=== PATIENT | male | born 1950 | race Caucasian/White ===

== ENCOUNTER 2022-05-16 10:42 | Inpatient (IN) | payer MEDICARE, SELFPAY ==
[2022-05-16] VITALS (11 sets, daily range): BP systolic 113–144; BP diastolic 65–97; PULSE 49–175; RESP 12–23; TEMP 36.4–36.8; O2SAT 94–98; BMI 25.1; BMI 25.2
--- NOTE | 2022-05-16 10:44 | NURSING ---
NO OLD EKGS
--- NOTE | 2022-05-16 10:54 | RAD_ITS ---
STUDY: X-RAY CHEST REASON FOR EXAM: Male, 71 years old. Palpitations TECHNIQUE: Single AP portable view of the chest. COMPARISON: None. FINDINGS: EKG electrodes are seen. Patchy infiltrates are seen in the left lower lobe as well as in the right lower lobe and peripheral aspects of the right upper and right lower lobe. These most likely present possible patchy pneumonia superimposed on chronic scarring. There is blunting of the left cosmetic angle. Normal size heart. Normal mediastinum and alicia. Normal visualized pulmonary arteries. Normal visualized aortic arch and descending thoracic aorta. Normal visualized thoracic spine. Normal visualized ribs, clavicles, and shoulders. There is no demonstrated abnormality of the visualized soft tissue structures of the upper abdomen. RAD/Chest 1 View (Portable) IMPRESSION: Patchy infiltrates in both lungs as described suggestive of a patchy pneumonia superimposed on scarring. Blunting of the left costophrenic angle. Electronically Signed: Nam Christopher MD at 11:30 EDT ,
--- NOTE | 2022-05-16 10:55 | EKG12_ITS ---
Test Reason : RHYTHM CHANGE Blood Pressure : / mmHG Vent. Rate : 099 BPM Atrial Rate : 000 BPM P-R Int : 000 ms QRS Dur : 082 ms QT Int : 336 ms P-R-T Axes : 000 024 009 degrees QTc Int : 431 ms Atrial fibrillation Low voltage QRS (Limb Leads) Poor R wave progression Abnormal ECG Confirmed by АНДРЕЙ ALDRIDGE, MARCY ([id number]), editorial clerk [facility] ([id number]) on 05/18/2022 12:31:19 PM Referred By: Confirmed By:MARCY CHIANG MD
--- NOTE | 2022-05-16 11:00 | EX.ED.DYSGE1 ---
HPI History of Present Illness Chief Complaint: Palpitations Informant: patient Onset/Context/Timing Onset: Month(s) Timing: Intermittent Current Severity: Mild Maximum Severity: Moderate Narrative Narrative: Patient presents secondary to intermittent palpitations for the past 2 to 3 months. He states he will feel his heart starts racing. He has had lightheadedness but never passed out. He went to have pulmonary function testing done today and they noted his rapid heart rate and sent him to the emergency room. While taking the patient's history we watched on the monitor as the patient's heart rate deana into the 170s with a narrow complex. I asked the patient to take a deep breath and bear down. He broke into a sinus rhythm with heart rate in the 60s. Shortly thereafter heart rate increased again. Again while bearing down ventricular response slowed but there did appear to be flutter waves noted. [facility] Medical History (Updated 05/16/22 @ 12:[address] Yovana Alva MD) Palpitation Home Medications NK 05/16/22 [History Last Taken Unknown] Allergy/AdvReac Type Severity Reaction Status Date / Time Opioids - Morphine Analogues AdvReac Nausea Verified 05/16/22 10:44 [narcotics] Social History Smoking Status: Current every day smoker tobacco type: cigarettes ROS ROS ED Constitutional Constitutional ED: Denies chills or fever(s) Eyes Eyes: Denies change in vision or discharge from eye(s) ENT ENT ED: Denies discharge from eye(s), rhinorrhea or sore throat Cardiovascular Cardiovascular: Reports palpitations and racing heartbeat Respiratory/Chest Respiratory/Chest: Denies cough or dyspnea Gastrointestinal Gastrointestinal: Denies abdominal pain, diarrhea, nausea or vomiting Genitourinary Genitourinary ED: Denies dysuria Musculoskeletal Musculoskeletal: Denies back pain or extremity pain Integumentary Denies Abrasions or rash Neurologic Neurologic: Denies headache(s) or weakness Psychiatric Psychiatric: Denies anxiety or depression Allergic/Immunologic Allergic/Immunologic ED: Denies lip swelling or urticaria EXAM Physical Exam Const Vital Signs: 05/16/22 10:44 05/16/22 11:00 05/16/22 11:03 Temperature 98.2 F Temperature Source Temporal Pulse Rate 49 L 175 H 160 H Respiratory Rate 12 15 18 Respiratory Effort Respiratory Pattern Blood Pressure 137/65 H 118/79 118/97 H Blood Pressure Mean 89 92 104 Pulse Ox 94 97 98 Oxygen Delivery Method Room Air Room Air Room Air 05/16/22 11:06 05/16/22 11:07 Temperature Temperature Source Pulse Rate 82 Respiratory Rate 20 H Respiratory Effort Normal Non-Labored Respiratory Pattern Normal Blood Pressure 136/73 H Blood Pressure Mean 94 Pulse Ox 97 Oxygen Delivery Method Room Air Positive well nourished and well developed General Appearance ED: well developed HEENT Reports normocephalic and head/scalp atraumatic Eyes PERRL and EOMs intact bilaterally Neck supple Chest Wall inspection of chest normal and palpation of chest normal Resp normal respiratory effort and clear to auscultation bilaterally Cardio regular rhythm Rate: tachycardic GI normal to inspection, nondistended, normoactive bowel sounds Palpation: soft Extremity normal to inspection Neuro oriented x3 and no sensory deficits noted Sensorium / Orientation: alert Motor Exam: strength 5/5 throughout Psych mental status grossly normal Skin no rashes or lesions noted MDM MDM MDM Narrative Medical decision making narrative: Patient was ordered 10 mg of IV Cardizem. Lab work obtained along with EKGs and chest x-ray. Lab Data Attestation: I reviewed the patient's lab results. Labs: Laboratory Results - last 24 hr 05/16/22 05/16/22 05/16/22 10:58 10:58 10:58 WBC 9.0 RBC 5.08 Hgb 15.6 Hct 46.9 MCV 92.3 MCH 30.7 MCHC 33.3 RDW Std Deviation 45.3 H RDW Coeff of Chiquis 13.2 Plt Count 269 MPV 8.5 Immature Gran % (Auto) 0.200 Neut % (Auto) 73.6 H Lymph % (Auto) 16.3 L Rains % (Auto) 7.4 Eos % (Auto) 2.1 Baso % (Auto) 0.4 Absolute Neuts (auto) 6.6 Absolute Lymphs (auto) 1.47 Nucleated RBC % 0 PT 13.9 INR 1.1 APTT 28.5 Sodium 139 Potassium 4.1 Chloride 105 Carbon Dioxide 28.0 Anion Gap 6 BUN 16 Creatinine 0.96 Estim Creat Clear Calc 72.62 Est GFR (MDRD) Af Amer 100 Est GFR (MDRD) Non-Af 82 BUN/Creatinine Ratio 16.6 Glucose 94 Calcium 9.8 Troponin I High Sens 12 TSH 1.30 Radiography Chest X-Ray - ED: 1 View, Read by ED Physician and Chronic Changes Diagnostic Testing: Clinical Impression(s) from Imaging Studies Chest X-Ray 05/16/22 10:54 IMPRESSION: Patchy infiltrates in both lungs as described suggestive of a patchy pneumonia superimposed on scarring. Blunting of the left costophrenic angle. Electronically Signed: Nam Christopher MD at 11:30 EDT , EKG Initial EKG: Attestation: I personally reviewed and interpreted this EKG as follows: Interpretation: Sinus Tachycardia (Narrow complex tachycardia at 170.) Follow-up EKG: Attestation: I personally reviewed and interpreted this EKG as follows: Interpretation: Sinus Rhythm (Sinus at 78 with no acute ischemia.) Treatment and Re-Evaluation Narrative: Patient was given IV Cardizem. Approximately 5 minutes later he converted to a sinus rhythm. Lab work and chest x-ray obtained. Labs are unremarkable with normal troponin and TSH. Chest x-ray is read by radiology as pneumonia. I believe this is more chronic scarring. Patient has no fever or white count. He was recently treated for pneumonia secondary to a similar x-ray finding and had no improvement with antibiotics. Patient has had a total of 3 EKGs performed. First EKG revealed narrow complex tachycardia at 170. Second EKG is sinus rhythm at 78 bpm. Third EKG reveals atrial fibrillation with a ventricular rate of 99 bpm. I spoke with Dr. Edwards. I am attempting to send the images to him. I also spoke with hospitalist regarding admission. Patient be given another dose of Cardizem for rate control as his A. fib rate was between 90 and 130 when I was in the room. Discharge Plan Triage Chief Complaint: Palpitations ED Provider: Yovana Alva Dx/Rx/DC Orders Clinical Impression: Atrial fibrillation with RVR Prescriptions: No Action NK Primary Care Provider: Tess Alberts Referrals: Tess Alberts MD [Primary Care Provider] - Disposition Disposition: [facility]
[2022-05-16] MEDS: 0.9% Normal Saline 1,000 ML 150 ML IV ×3 (11:01→22:46)
[2022-05-16] MEDS: dilTIAZem 25 MG/5 ML Vial 10 MG IV BOLUS ×2 (11:01→13:25)
[2022-05-16 11:06] LABS: Absolute Lymphocyte Count 1.47 X10^3/uL (0.83-4.51); Absolute Neutrophil Count 6.6 X10^3/uL (2.0-7.7); Basophil# 0.04 X10^3/uL; Basophil% 0.4 % (0-1); Eosinophil# 0.19 X10^3/uL; Eosinophils% 2.1 % (0-5); Hematocrit 46.9 % (40-54); Hemoglobin 15.6 g/dL (13.0-16.5); Lymphocyte # 1.47 X10^3/ul (0.83-4.51); Lymphocyte % 16.3 % (19-41); Mean Corp Hgb Conc 33.3 g/dL (32-36); Mean Corpuscular Hgb 30.7 pg (27.0-32.0); Mean Corpuscular Volume 92.3 fL (80-94); Mean Platelet Vol. 8.5 fl (6.2-12.0); Monocyte# 0.67 X10^3/uL; Monocyte% 7.4 % (0-10); NRBC Flagged by Analyzer 0 % (0-5); Neutrophil # 6.62 X10^3/uL (2.7-7.7); Neutrophil % 73.6 % (47-70); Platelet Count 269 K/mm3 (150-450); RBC Distribution Width CV 13.2 % (11.6-14.6); RBC Distribution Width SD 45.3 fl (35.1-43.9); Red Blood Count 5.08 M/mm3 (4.6-6.2)
--- NOTE | 2022-05-16 11:06 | EKG12_ITS ---
Test Reason : Blood Pressure : / mmHG Vent. Rate : 078 BPM Atrial Rate : 078 BPM P-R Int : 138 ms QRS Dur : 080 ms QT Int : 326 ms P-R-T Axes : 051 029 031 degrees QTc Int : 371 ms Normal sinus rhythm Low voltage QRS (Limb Leads) Poor R wave progression Confirmed by АНДРЕЙ ALDRIDGE, MARCY ([id number]), makeup editor [facility] ([id number]) on 05/18/2022 12:31:48 PM Referred By: Confirmed By:MARCY CHIANG MD
[2022-05-16 11:29] LABS: Anion Gap 6 (5-15); BUN 16 mg/dL (7-18); BUN/Creat Ratio 16.6 RATIO (10-20); Calcium,Total 9.8 mg/dL (8.5-10.1); Chloride 105 mmol/L (98-107); Creatinine, Serum 0.96 mg/dL (0.70-1.30); EST Glomerular Filtration Rate 82 mL/min (>60); Est Glom Filt Rate - Afr Amer 100 mL/min (>60); Estimated Creatinine Clearance 72.62 ml/min; Glucose 94 mg/dL (74-106); Potassium 4.1 mmol/L (3.5-5.1); Sodium Level 139 mmol/L (136-145); Troponin-I HS (w/2H Reflex) 12 pg/mL (3.0-78.0)
[2022-05-16 11:42] LABS: International Normalized Ratio 1.1; Partial Thromboplast Time 28.5 Seconds (24.1-36.2); Prothrombin Time (Protime)PT. 13.9 SECONDS (11.7-14.9)
--- NOTE | 2022-05-16 12:26 | EKG12_ITS ---
Test Reason : Blood Pressure : / mmHG Vent. Rate : 170 BPM Atrial Rate : 178 BPM P-R Int : 192 ms QRS Dur : 082 ms QT Int : 290 ms P-R-T Axes : 043 067 007 degrees QTc Int : 487 ms Supraventricular tachycardia Low voltage QRS (Limb Leads) Poor R wave progression Confirmed by АДНРЕЙ ALDRIDGE, MARCY ([id number]), newspaper editor managing [facility] ([id number]) on 05/18/2022 12:32:18 PM Referred By: Confirmed By:MARCY CHIANG MD
--- NOTE | 2022-05-16 12:57 | NURSING ---
PCU [facility] AFIB, RVR
[2022-05-16 13:02] LABS: Reflex Troponin-HS? (from REC) Y
[2022-05-16 13:44] LABS: Troponin-I HS 17 pg/mL (3.0-78.0)
--- NOTE | 2022-05-16 13:49 | HP.PCM.HOS_ITS ---
HPI - General General Date of Admission: 05/16/22 Date of Service: 05/16/22 Chief Complaint: Elevated heart rate HPI Narrative DENG CANAS, is a 71 M with a past medical history significant for tobacco use who presented to [facility] 05/16/2022 for an elevated heart rate. He was at another facility in [place] for lung cancer screening and was noted to have an elevated heart rate. He presented to the emergency department and his heart rate was 170s, and did respond to vagal maneuver but worsened again. Diltiazem bolus given and cardiology consulted. Upon discussion Mr. Canas reports that he has been having intermittent racing heart for several months. Episodes last 5 to 10 minutes and go away often when he leans forward but sometimes does not. Occasionally his chest will feel somewhat tight during these periods, and notes that periods are increasing in frequency. Endorses always being shortness of breath with possible worsening during these episodes. Does have chronic cough, notes that intermittently over the past several months he will have occasional streaks of blood. Also notes 30 pound unintentional weight loss with poor appetite over the past 5 months. Denies nausea but occasionally will cough until he vomits. Denies known heart history. Does endorse however that he does not follow-up with any physicians and just recently saw someone who recommended the lung cancer screening. Denies other complaints at this time, heart rate at time of exam low 100s and patient without symptoms. [facility] Medical History (Updated 05/16/22 @ 18:[address] Gris Turner MD) Palpitation Home Medications NK 05/16/22 [History Last Taken Unknown] albuterol sulfate 90 mcg/actuation aerosol inhaler 2 inh inhalation Q4H SOB 05/16/22 [History Last Taken 05/16/22] loratadine 10 mg tablet (Claritin) 10 mg PO DAILY ALLERGIES 05/16/22 [History Last Taken 05/15/22] Allergy/AdvReac Type Severity Reaction Status Date / Time Opioids - Morphine Analogues AdvReac Nausea Verified 05/16/22 10:44 [narcotics] Social History Smoking Status: Current every day smoker tobacco type: cigarettes ROS Constitutional Constitutional: Reports change in weight and other Details: Unintentional weight loss of 30 pounds ; Denies chills, fever(s) or night sweats Eyes Eyes: Denies change in vision ENT HEENT: Denies headache(s), nasal congestion or sore throat Cardiovascular Cardiovascular: Reports other Details: Occasional racing heart, not present at time of exam. Chest tightness when heart racing significantly, not present at time of exam Respiratory/Chest Respiratory/Chest: Reports other Details: Endorses chronic shortness of breath that has not necessarily worsened, chronic cough with sparse streaks of blood streaks of red every few weeks. Gastrointestinal Gastrointestinal: Reports other Details: denies changes in bowel or bladder ; Denies abdominal pain Genitourinary Genitourinary: Reports other Details: denies changes in urination Musculoskeletal Musculoskeletal: Denies joint pain Neurologic Neurologic: Denies dizziness, focal weakness, headache(s), numbness or tingling Psychiatric Psychiatric: Denies anxiety Hematologic/Lymphatic Hematologic/Lymphatic: Denies easy bleeding Allergic/Immunologic Allergic/Immunologic: Reports other Details: denies rashes Vital Signs Vital Signs Vital Signs: 05/16/22 10:44 05/16/22 11:00 05/16/22 11:03 Temperature 98.2 F Temperature Source Temporal Pulse Rate 49 L 175 H 160 H Respiratory Rate 12 15 18 Respiratory Effort Respiratory Pattern Blood Pressure 137/65 H 118/79 118/97 H Blood Pressure [BP] Blood Pressure Mean 89 92 104 Blood Pressure Mean [BP] Blood Pressure Source [BP] Blood Pressure Position [BP] Blood Pressure Location [BP] Pulse Ox 94 97 98 Oxygen Delivery Method Room Air Room Air Room Air 05/16/22 11:06 05/16/22 11:07 05/16/22 12:51 Temperature 98 F Temperature Source Temporal Pulse Rate 82 107 H Respiratory Rate 20 H 23 H Respiratory Effort Normal Non-Labored Respiratory Pattern Normal Blood Pressure 136/73 H 130/82 H Blood Pressure [BP] Blood Pressure Mean 94 98 Blood Pressure Mean [BP] Blood Pressure Source [BP] Blood Pressure Position [BP] Blood Pressure Location [BP] Pulse Ox 97 95 Oxygen Delivery Method Room Air Room Air 05/16/22 13:36 Temperature 97.6 F L Temperature Source Oral Pulse Rate 98 Respiratory Rate 18 Respiratory Effort Respiratory Pattern Blood Pressure Blood Pressure [BP] 144/86 H Blood Pressure Mean Blood Pressure Mean [BP] 105 Blood Pressure Source [BP] Monitor Blood Pressure Position [BP] Sitting Blood Pressure Location [BP] Left Arm Pulse Ox 97 Oxygen Delivery Method Room Air Weight Weight: 77.2 kg Body Mass Index (BMI) 25.2 Physical Exam Const alert and no apparent distress Constitutional Narrative: Oriented HEENT normocephalic and head/scalp atraumatic Eyes Eyes Narrative: EOM grossly intact, anicteric Neck supple Resp Resp Narrative: Diffuse wheezing Cardio Cardio Narrative: Irregularly irregular, heart rate low 100s at time of exam GI soft to palpation, non-tender and non-distended Extremity Extremity Narrative: No edema appreciated Neuro moves all extremities Neuro Narrative: No overt focal deficits appreciated Psych Psych Narrative: Cooperative Results Lab / Micro Data Result Diagrams: 05/16/22 10:58 05/16/22 10:58 Labs: Laboratory Results - last 24 hr 05/16/22 10:58: WBC 9.0, RBC 5.08, Hgb 15.6, Hct 46.9, MCV 92.3, MCH 30.7, MCHC 33.3, RDW Std Deviation 45.3 H, RDW Coeff of Chiquis 13.2, Plt Count 269, MPV 8.5, Immature Gran % (Auto) 0.200, Neut % (Auto) 73.6 H, Lymph % (Auto) 16.3 L, [place] % (Auto) 7.4, Eos % (Auto) 2.1, Baso % (Auto) 0.4, Absolute Neuts (auto) 6.6, Absolute Lymphs (auto) 1.47, Nucleated RBC % 0 05/16/22 10:58: PT 13.9, INR 1.1, APTT 28.5 05/16/22 10:58: Sodium 139, Potassium 4.1, Chloride 105, Carbon Dioxide 28.0, Anion Gap 6, BUN 16, Creatinine 0.96, Estim Creat Clear Calc 72.62, Est GFR (MDRD) Af Amer 100, Est GFR (MDRD) Non-Af 82, BUN/Creatinine Ratio 16.6, Glucose 94, Calcium 9.8, Troponin I High Sens 12, TSH 1.30 05/16/22 13:18: Troponin I High Sens 17 Radiology Impression Chest X-Ray 05/16/22 10:54 IMPRESSION: Patchy infiltrates in both lungs as described suggestive of a patchy pneumonia superimposed on scarring. Blunting of the left costophrenic angle. Electronically Signed: Nam Christopher MD at 11:30 EDT , Assessment & Plan Assessment/Plan (1) Narrow complex tachycardia: (2) Dyspnea: PLAN: Plan #Narrow complex tachycardia Improved with vagal maneuver initially but when he became significantly tachycardic again he was given diltiazem which improved heart rate to low 100s Possible AVNRT, additionally has findings suggestive of A. fib with RVR/atrial dysrhythmia, less likely flutter He did convert back to sinus rhythm Cardiology following Will obtain echocardiogram At this time we will treat with rate control and monitor on telemetry, [id number] of 1, was not started on full dose anticoagulation, additionally with streaks of red intermittently upon coughing we will proceed cautiously TSH 1.3 #Dyspnea Does have chronic shortness of breath Has been smoking 1 pack a day since he was 24 years old Albuterol as needed, may need pulm follow-up and PFTs as an outpatient Can consider nebs pending his progress #Hemoptysis Has complained of significant cough with occasional streaks of red over the past several months, red will be present once every few weeks Denies significant bleeding Certainly with this report in addition to his smoking history and unintentional weight lost could have underlying malignancy Seen team chest obtained and demonstrated mediastinal lymphadenopathy as well as bilateral hilar lymphadenopathy. 4.7 cm x 3.8 cm mass in the posterior segment of the left lower lobe with small pleural effusion, will consult pulmonology #Tobacco use Encourage cessation DVT prophylaxis: SCDs Gris Turner MD Charges/Coding Visit Charges Inpatient E&M: 26281 Init Hosp L2
[2022-05-16 14:10] LABS: Magnesium 2.2 mg/dL (1.6-2.6)
--- NOTE | 2022-05-16 14:14 | ECHOD_ITS ---
Reason For Study: AFIB Procedure This was a 2D Doppler, Color Flow transthoracic echocardiogram. Exam performed portable in patient room. Left Ventricle Normal LV size. Left ventricular systolic function is normal. The estimated ejection fraction is 65 %. Stage 2 diastolic dysfunction. No regional wall motion abnormalities noted. Right Ventricle Normal RV size. Normal systolic function. Atria Normal left atrium. Normal right atrium. No doppler evidence for ASD. Mitral Valve There is mild to moderate mitral annular calcification. Extension of the mitral annular calcification onto the base of the posterior mitral valve leaflet. Trivial mitral valve insufficiency. Tricuspid Valve Normal tricuspid valve. Trivial tricuspid valve insufficiency. Right ventricular systolic pressure estimated to be 36 mmHg. Aortic Valve Trisinus/trileaflet aortic valve. Normal aortic valve. Pulmonic Valve The pulmonic valve is not well visualized. Trivial pulmonic valve insufficiency. Great Vessels Normal sized aortic root. Pericardium/Pleural No pericardial effusion. MMode/2D Measurements & Calculations LVIDd: 4.3 cm IVSd: 1.1 cm Ao root diam: 3.2 cm LVIDs: 2.9 cm LVPWd: 1.2 cm RVDd: 3.1 cm FS: 32.2 % LAV(MOD-bp): 32.1 ml LVAd ap4: 26.1 cm2 SV(MOD-sp4): 48.6 ml LAV(MOD-bp) Indexed: 16.8 ml/m2 LVLd ap4: 7.9 cm LAV(MOD-sp2): 38.9 ml EDV(MOD-sp4): 70.1 ml LAV(MOD-sp4): 26.4 ml EDV(sp4-el): 72.8 ml LVAs ap4: 11.7 cm2 LVLs ap4: 5.8 cm ESV(MOD-sp4): 21.5 ml ESV(sp4-el): 19.9 ml EF(MOD-sp4): 69.3 % EF(sp4-el): 72.7 % SV(sp4-el): 52.9 ml LA A4 area: 11.9 cm2 LA dimension(2D): 3.4 cm RA A4 area: 19.9 cm2 Time Measurements MV dec time: 0.21 sec Doppler Measurements & Calculations MV E max salbador: 91.7 cm/sec Lat Peak E' Salbador: 9.5 cm/sec Med Peak E' Salbador: 6.3 cm/sec MV A max salbador: 101.0 cm/sec E/E' lat: 9.6 E/E' med: 14.5 MV E/A: 0.91 MV V2 max: 102.6 cm/sec Ao V2 max: 110.5 cm/sec MV max P.2 mmHg MV dec slope: 442.9 cm/sec2 Ao max P.9 mmHg MV V2 mean: 49.6 cm/sec Ao V2 mean: 79.0 cm/sec MV mean P.3 mmHg Ao mean P.8 mmHg MV V2 VTI: 35.6 cm Ao V2 VTI: 29.5 cm LV V1 max: 88.0 cm/sec PA V2 max: 70.8 cm/sec TR max salbador: 287.2 cm/sec LV V1 max P.1 mmHg PA V2 mean: 52.9 cm/sec TR max P.0 mmHg LV V1 mean P.9 mmHg LV V1 mean: 65.3 cm/sec LV V1 VTI: 24.0 cm ECHO/Echo Complete Interpretation Summary Left ventricular systolic function is normal. The estimated ejection fraction is 65 %. There is mild to moderate mitral annular calcification. Extension of the mitral annular calcification onto the base of the posterior mi tral valve leaflet. Trivial mitral valve insufficiency. Trivial tricuspid valve insufficiency. Trivial pulmonic valve insufficiency. Right ventricular systolic pressure estimated to be 36 mmHg. Stage 2 diastolic dysfunction. Ordering Physician: Gris Turner Referring Physician: Tess Alberts M.D. Performed By: Sumaya Marinelli RCS
--- NOTE | 2022-05-16 14:57 | CT_ITS ---
STUDY: CT CHEST WITH CONTRAST REASON FOR EXAM: Male, 71 years old. Malignancy -- SOB, weight loss, small volume hemoptysis, ?malign RADIATION DOSAGE (If Supplied By Facility): CTDIvol = ( 11.59 ) mGy, DLP = ( 374.99 ) mGycm TECHNIQUE: Transaxial imaging was performed following intravenous administration of IV 100mL Isovue-370. Individualized dose optimization techniques were used for this CT. COMPARISON: Comparison is made with prior chest radiograph done earlier today. FINDINGS: CHEST Hyperinflation. Emphysematous changes. There are calcifications of the coronary arteries. Multiple enlarged mediastinal and bilateral hilar lymphadenopathy. There is evidence of a 4.7 cm x 3.8 cm mass in the posterior medial segment of the left lower lobe with the small left pleural effusion. This is superimposed on chronic interstitial fibrosis with subpleural blebs. Normal aorta arch and descending thoracic aorta. There are multi-level degenerative changes of the thoracic spine. Is evidence of retrocrural lymphadenopathy. Fatty infiltration of the liver. CT/Chest WITH Contrast IMPRESSION: Mediastinal lymphadenopathy as well as bilateral hilar lymphadenopathy. 4.7 cm x 3.8 cm mass in the posterior segment of the left lower lobe with small left pleural effusion. This is superimposed on chronic interstitial fibrosis. Electronically Signed: Nam Christopher MD at 15:23 EDT ,
--- NOTE | 2022-05-16 15:20 | CON.PCM.CA_ITS ---
Assessment & Plan Assessment/Plan (1) SVT (supraventricular tachycardia): PLAN: He does have an episode of a narrow complex tachycardia with a rate of approximately 170 bpm which appeared, per the [facility] emergency department staff, to terminate with a Valsalva maneuver. This would lend to an underlying reentry mechanism tachycardia such as an AVNRT. This would be a rhythm that would be amenable to EPS/RFA. At the moment he appears to be back in sinus rhythm. He will be monitored. He will continue medical therapy as deemed appropriate. (2) Atrial fibrillation with RVR: PLAN: He also has findings appearing compatible with atrial fibrillation. The etiology is of an underlying atrial dysrhythmia such as atrial fibrillation may be related to his underlying age and pulmonary disease process. However he does need to be evaluated for any other cardiovascular disease. This could start with a transthoracic echocardiogram. He may need additional noninvasive or invasive cardiovascular studies as deemed appropriate over time. In the interim he can be treated medically with rate control therapy. He may need to be considered for anticoagulant therapy if he is stable from an u nderlying pulmonary disease process. (3) Dyspnea: PLAN: He does have chronic shortness of breath and dyspnea. There is concern as to whether or not this is related to an underlying primary pulmonary disease process. This could be findings compatible with underlying COPD. His outside hospital pulmonary function studies are unavailable for review at this time. (4) Hemoptysis: PLAN: He did complain of an element appearing compatible with hemoptysis. Based upon his tobacco history and his pulmonary disease findings there may be concern as to whether or not there is any evidence of underlying lung carcinoma. Thus he is to undergo further evaluation with a chest CT scan. Addt'l Comments The patient's case was discussed and viewed with the patient, Dr. Alva, and Dr. Duvall. This note was generated using a voice recognition system and there may be incorrect words, spelling or punctuation that were not noted when reviewing the office note prior to saving. HPI Consult Data Date of Consult: 05/16/22 HPI Narrative HPI Narrative: DENG MARQUEZ, is a 71 year old white male who presents for cardiovascular consultation based upon concerns of underlying cardiac dysrhythmias. The patient notes that potentially over the last 2 to 3 months he has been noting episodes of rapid heart rate sensation. He states these episodes occur, he may feel somewhat off with them but has not lost consciousness. He notes sometimes he can lean forward and the episodes will cease. They do not necessarily occur only at rest or only with exertion. They are random. He states they have gotten somewhat worse. He notes that he was undergoing evaluation earlier this day and Bill Hines at the [facility] for concerns of an underlying pulmonary disease process. It was noted he had an elevated heart rate. He states they recommended that he present to their emergency department for additional evaluation and care. However he elected to leave their facility and drive to this facility as it is closer to his home for additional evaluation and care. He was evaluated in the emergency department by Dr. Alva. He was noted to have episodes of a narrow complex tachycardia that appeared to break with a Valsalva maneuver and return to sinus rhythm. He was then noted to have episodes of what appeared to be underlying atrial fibrillation. He was noted to have intermittent episodes between the dysrhythmias and sinus rhythm. Thus it was recommended that he undergo further medical evaluation and care. He was administered IV diltiazem 20 mg x 1. He then had slowing of his heart rate. It appears he has had eventual return to sinus rhythm. He states when these episodes do not happen he otherwise feels okay . He denies any symptoms of ongoing angina pectoris. There has been no episodes of acute orthopnea or PND or peripheral pitting edema. He has had no syncope. He states he is chronically short of breath and has been so for years. He states he was recently diagnosed through the [facility] system as having pneumonia. He was treated for such. He states then he was told he did not have pneumonia. He has been undergoing lung carcinoma screening. He apparently has admitted to episodes concerning for hemoptysis. He states he has not followed with a physician for years . He has had no other cardiovascular studies in the past that he is aware of. [facility] Medical History (Updated 05/16/22 @ 15:[address] Nima Edwards MD) Palpitation Home Medications NK 05/16/22 [History Last Taken Unknown] albuterol sulfate 90 mcg/actuation aerosol inhaler 2 inh inhalation Q4H SOB 05/16/22 [History Last Taken 05/16/22] loratadine 10 mg tablet (Claritin) 10 mg PO DAILY ALLERGIES 05/16/22 [History Last Taken 05/15/22] Allergy/AdvReac Type Severity Reaction Status Date / Time Opioids - Morphine Analogues AdvReac Nausea Verified 05/16/22 10:44 [narcotics] Social History Smoking Status: Current every day smoker tobacco type: cigarettes ROS Constitutional Constitutional: Reports as per HPI Eyes Eyes: Reports as per HPI ENT HEENT: Reports as per HPI Cardiovascular Cardiovascular: Reports irregular heart rhythm, palpitations and rapid heart rate Respiratory/Chest Respiratory/Chest: Reports dyspnea Gastrointestinal Gastrointestinal: Reports as per HPI Genitourinary Genitourinary: Reports as per HPI Musculoskeletal Musculoskeletal: Reports as per HPI Integumentary Integumentary: Reports as per HPI Neurologic Neurologic: Reports as per HPI Psychiatric Psychiatric: Reports as per HPI Physical Exam Const alert, oriented x3 and no apparent distress Orientation / Consciousness: awake HEENT normocephalic, head/scalp atraumatic and hearing grossly normal bilaterally Eyes PERRL, EOMs intact bilaterally, conjunctivae normal and no scleral icterus Neck full ROM, supple and no JVD Carotids: normal carotid upstroke Resp Auscultation: diminished lung sounds diffuse Cardio regular rate, regular rhythm, S1 normal heart sound and S2 normal heart sound GI normal to inspection, nondistended, normoactive bowel sounds Extremity no pedal edema Skin no rashes or lesions noted Psych mental status grossly normal Risk Stratification Risk Stratification Applicable: No Procedure Criteria Type of Procedure Procedure Type: Elective Elective Risks - COVID COVID Risk Discussion: The surgeon/proceduralist and patient have discussed in detail the risk of exposure to and/or potential harm posed by the COVID-19 virus with having a surgery/procedure at this time versus the risk of delaying the surgery/procedure. It is not possible to know either the risk of delaying the surgery or procedure or chance of getting an infection with perfect accuracy, but a joint decision was made between the patient and the surgeon/proceduralist to proceed at this time with the scheduled surgery/procedure as indicated on the consent form. Objective Data Vital Signs: Vital Signs Temp Pulse Resp BP Pulse Ox O2 Del Method 97.6 F L 99 18 144/86 H 97 Room Air 05/16/22 13:36 05/16/22 14:01 05/16/22 13:36 05/16/22 13:36 05/16/22 13:36 05/16/22 13:36 Oxygen Delivery Method Room Air Weight: 170 lb 3.15 oz Body Mass Index (BMI) 25.2 Intake & Output: Intake and Output for Last 24 Hours 05/14/22 05/15/22 05/16/22 23:59 23:59 23:59 Intake Total 1137.5 / 1137.5 Balance 1137.5 / 1137.5 Lab / Micro Data Result Diagrams: 05/16/22 10:58 05/16/22 10:58 Labs: Laboratory Results - last 24 hr 05/16/22 10:58: WBC 9.0, RBC 5.08, Hgb 15.6, Hct 46.9, MCV 92.3, MCH 30.7, MCHC 33.3, RDW Std Deviation 45.3 H, RDW Coeff of Chiquis 13.2, Plt Count 269, MPV 8.5, Immature Gran % (Auto) 0.200, Neut % (Auto) 73.6 H, Lymph % (Auto) 16.3 L, [place] % (Auto) 7.4, Eos % (Auto) 2.1, Baso % (Auto) 0.4, Absolute Neuts (auto) 6.6, Absolute Lymphs (auto) 1.47, Nucleated RBC % 0 05/16/22 10:58: PT 13.9, INR 1.1, APTT 28.5 05/16/22 10:58: Sodium 139, Potassium 4.1, Chloride 105, Carbon Dioxide 28.0, Anion Gap 6, BUN 16, Creatinine 0.96, Estim Creat Clear Calc 72.62, Est GFR (MDRD) Af Amer 100, Est GFR (MDRD) Non-Af 82, BUN/Creatinine Ratio 16.6, Glucose 94, Calcium 9.8, Troponin I High Sens 12, TSH 1.30 05/16/22 13:18: Troponin I High Sens 17 05/16/22 13:18: Magnesium 2.2 Cardiology Labs/Tests 05/16/22 10:58: WBC 9.0, RBC 5.08, Hgb 15.6, Hct 46.9, MCV 92.3, MCH 30.7, MCHC 33.3, Plt Count 269, MPV 8.5, Immature Gran % (Auto) 0.200, Neut % (Auto) 73.6 H , Lymph % (Auto) 16.3 L, [place] % (Auto) 7.4, Eos % (Auto) 2.1, Baso % (Auto) 0.4, Absolute Neuts (auto) 6.6, Nucleated RBC % 0 05/16/22 10:58: PT 13.9, INR 1.1, APTT 28.5 05/16/22 10:58: Sodium 139, Potassium 4.1, Chloride 105, Carbon Dioxide 28.0, Anion Gap 6, BUN 16, Creatinine 0.96, Est GFR (MDRD) Af Amer 100, Est GFR (MDRD) Non-Af 82, BUN/Creatinine Ratio 16.6, Glucose 94, Calcium 9.8 05/16/22 13:18: Magnesium 2.2 Rhythm: At the present time: Cardiac rhythm: Sinus rhythm EKG: Narrow complex tachycardia with a ventricular rate of approximately 170 bpm appearing concerning for an underlying SVT; sinus rhythm; atrial fibrillation Radiography Diagnostic Testing: Radiology Impression Chest X-Ray 05/16/22 10:54 IMPRESSION: Patchy infiltrates in both lungs as described suggestive of a patchy pneumonia superimposed on scarring. Blunting of the left costophrenic angle. Electronically Signed: Nam Christopher MD at 11:30 EDT ,
[2022-05-16] MEDS: Albuterol 2.5 MG/3 ML VIAL.NEB. INHALATION (19:30)
[2022-05-16] MEDS: Metoprolol Tartrate 50 MG Tablet PO (21:16)
[2022-05-17] VITALS (14 sets, daily range): BP systolic 116–122; BP diastolic 65–80; PULSE 57–86; RESP 16–20; TEMP 36.4–36.9; O2SAT 94–98
[2022-05-17] MEDS: Albuterol 2.5 MG/3 ML VIAL.NEB. INHALATION ×2 (01:29→06:53)
[2022-05-17] MEDS: 0.9% Normal Saline 1,000 ML 150 ML IV (05:26)
[2022-05-17 05:52] LABS: Absolute Lymphocyte Count 1.75 X10^3/uL (0.83-4.51); Absolute Neutrophil Count 4.4 X10^3/uL (2.0-7.7); Basophil# 0.04 X10^3/uL; Basophil% 0.6 % (0-1); Eosinophil# 0.26 X10^3/uL; Eosinophils% 3.6 % (0-5); Hematocrit 36.4 % (40-54); Hemoglobin 12.1 g/dL (13.0-16.5); Lymphocyte # 1.75 X10^3/ul (0.83-4.51); Lymphocyte % 24.3 % (19-41); Mean Corp Hgb Conc 33.2 g/dL (32-36); Mean Corpuscular Hgb 30.1 pg (27.0-32.0); Mean Corpuscular Volume 90.5 fL (80-94); Monocyte% 9.7 % (0-10); NRBC Flagged by Analyzer 0 % (0-5); Neutrophil # 4.44 X10^3/uL (2.7-7.7); Neutrophil % 61.5 % (47-70); Platelet Count 230 K/mm3 (150-450); RBC Distribution Width CV 13.2 % (11.6-14.6); RBC Distribution Width SD 44.1 fl (35.1-43.9); Red Blood Count 4.02 M/mm3 (4.6-6.2); White Blood Count 7.2 K/mm3 (4.4-11.0)
[2022-05-17 06:39] LABS: ALB/GLOB Ratio 0.8 RATIO (0.9-2.4); AST(SGOT) 12 U/L (15-37); Alanine Aminotransfer ALT/SGPT 12 U/L (16-61); Albumin, Serum 2.6 g/dL (3.2-5.0); Alkaline Phosphatase 62 U/L (45-117); Anion Gap 7 (5-15); BUN 16 mg/dL (7-18); BUN/Creat Ratio 20.3 RATIO (10-20); Calcium,Total 8.6 mg/dL (8.5-10.1); Chloride 107 mmol/L (98-107); Cholesterol 172 mg/dL (200); Creatinine, Serum 0.79 mg/dL (0.70-1.30); EST Glomerular Filtration Rate 103 mL/min (>60); Est Glom Filt Rate - Afr Amer 125 mL/min (>60); Estimated Creatinine Clearance 67.45 ml/min; Globulin 3.3 g/dL (2.2-4.2); Glucose 72 mg/dL (74-106); High Density Lipoprotein 39 mg/dL; Magnesium 1.8 mg/dL (1.6-2.6); Potassium 3.8 mmol/L (3.5-5.1); Protein, Total 5.9 g/dL (6.4-8.2); Sodium Level 140 mmol/L (136-145); Triglycerides 66 mg/dL; Very Low Density Lipoprotein 13 mg/dL (5-40)
--- NOTE | 2022-05-17 06:41 | PCM.PN.HOSP ---
Subjective Subjective DOS: 05/17/2022 CC: Did not sleep Reports this morning that his breathing is slightly better but feels gurgly on the left side, still has a cough. Feels better laying on his right side than his left. Not having any chest pain. Did have 1 more episode of tachyarrhythmia at around 5 PM that broke spontaneously. Did not sleep well last night and would like something to assist with that. Denies swelling or changes in bowel or bladder. Objective Data Objective Data Vital Signs: Vital Signs Temp Pulse Resp BP Pulse Ox O2 Del Method 98.4 F 68 20 H 116/65 94 Room Air 05/17/22 03:15 05/17/22 03:15 05/17/22 03:15 05/17/22 03:15 05/17/22 03:15 05/17/22 03:15 Oxygen Delivery Method Room Air Weight: 77 kg Body Mass Index (BMI) 25.2 Intake & Output: Intake and Output for Last 24 Hours 05/15/22 05/16/22 05/17/22 23:59 23:59 23:59 Intake Total 2137.5 / 2337.5 1260 / 1260 Balance 2137.5 / 2337.5 1260 / 1260 Lab / Micro Data Result Diagrams: 05/17/22 04:15 05/17/22 04:15 Labs: Laboratory Results - last 24 hr 05/16/22 10:58: WBC 9.0, RBC 5.08, Hgb 15.6, Hct 46.9, MCV 92.3, MCH 30.7, MCHC 33.3, RDW Std Deviation 45.3 H, RDW Coeff of Chiquis 13.2, Plt Count 269, MPV 8.5, Immature Gran % (Auto) 0.200, Neut % (Auto) 73.6 H, Lymph % (Auto) 16.3 L, [place] % (Auto) 7.4, Eos % (Auto) 2.1, Baso % (Auto) 0.4, Absolute Neuts (auto) 6.6, Absolute Lymphs (auto) 1.47, Nucleated RBC % 0 05/16/22 10:58: PT 13.9, INR 1.1, APTT 28.5 05/16/22 10:58: Sodium 139, Potassium 4.1, Chloride 105, Carbon Dioxide 28.0, Anion Gap 6, BUN 16, Creatinine 0.96, Estim Creat Clear Calc 72.62, Est GFR (MDRD) Af Amer 100, Est GFR (MDRD) Non-Af 82, BUN/Creatinine Ratio 16.6, Glucose 94, Calcium 9.8, Troponin I High Sens 12, TSH 1.30 05/16/22 13:18: Troponin I High Sens 17 05/16/22 13:18: Magnesium 2.2 05/17/22 04:15: WBC 7.2, RBC 4.02 L, Hgb 12.1 L, Hct 36.4 L, MCV 90.5, MCH 30.1, MCHC 33.2, RDW Std Deviation 44.1 H, RDW Coeff of Chiquis 13.2, Plt Count 230, MPV 9.0, Immature Gran % (Auto) 0.300, Neut % (Auto) 61.5, Lymph % (Auto) 24.3, [place] % (Auto) 9.7, Eos % (Auto) 3.6, Baso % (Auto) 0.6, Absolute Neuts (auto) 4.4, Absolute Lymphs (auto) 1.75, Nucleated RBC % 0 05/17/22 04:15: Sodium 140, Potassium 3.8, Chloride 107, Carbon Dioxide 26.0, Anion Gap 7, BUN 16, Creatinine 0.79, Estim Creat Clear Calc 67.45, Est GFR (MDRD) Af Amer 125, Est GFR (MDRD) Non-Af 103, BUN/Creatinine Ratio 20.3 H, Glucose 72 L, Calcium 8.6, Magnesium 1.8, Total Bilirubin 0.60, AST 12 L, ALT 12 L, Alkaline Phosphatase 62, Total Protein 5.9 L, Albumin 2.6 L, Globulin 3.3, Albumin/Globulin Ratio 0.8 L, Triglycerides 66, Cholesterol 172, LDL Cholesterol 120, VLDL Cholesterol 13, HDL Cholesterol 39 L Radiography Diagnostic Testing: Radiology Impression Chest X-Ray 05/16/22 10:54 IMPRESSION: Patchy infiltrates in both lungs as described suggestive of a patchy pneumonia superimposed on scarring. Blunting of the left costophrenic angle. Electronically Signed: Nam Christopher MD at 11:30 EDT , Chest CT 05/16/22 14:57 IMPRESSION: Mediastinal lymphadenopathy as well as bilateral hilar lymphadenopathy. 4.7 cm x 3.8 cm mass in the posterior segment of the left lower lobe with small left pleural effusion. This is superimposed on chronic interstitial fibrosis. Electronically Signed: Nam Christopher MD at 15:23 EDT , Physical Exam Const alert and no apparent distress Constitutional Narrative: Oriented HEENT normocephalic and head/scalp atraumatic Eyes Eyes Narrative: EOM grossly intact, anicteric Neck supple Resp Resp Narrative: Diffusely coarse Cardio Cardio Narrative: Regular rate and rhythm GI soft to palpation, non-tender and non-distended Extremity Extremity Narrative: No edema appreciated Neuro moves all extremities Neuro Narrative: No overt focal deficits appreciated Psych Psych Narrative: Cooperative Assessment & Plan Assessment/Plan (1) Narrow complex tachycardia: (2) Dyspnea: PLAN: Plan #Narrow complex tachycardia Improved with vagal maneuver initially but when he became significantly tachycardic again he was given diltiazem which improved heart rate to low 100s, currently normal sinus rhythm Possible AVNRT, additionally has findings suggestive of A. fib with RVR/atrial dysrhythmia, less likely flutter He did convert back to sinus rhythm, metoprolol started yesterday Cardiology following Echo ordered, pending At this time we will treat with rate control and monitor on telemetry, [id number] of 1, was not started on full dose anticoagulation, additionally with streaks of red intermittently upon coughing we will proceed cautiously TSH 1.3 #Dyspnea Does have chronic shortness of breath?is slightly better this morning Has been smoking 1 pack a day since he was 24 years old Albuterol as needed, may need outpatient pulm follow-up and PFTs as an outpatient Can consider nebs pending his progress #Hemoptysis Has complained of significant cough with occasional streaks of red over the past several months, red will be present once every few weeks Denies copious bleeding Certainly with this report in addition to his smoking history and unintentional weight lost could have underlying malignancy Seen team chest obtained and demonstrated mediastinal lymphadenopathy as well as bilateral hilar lymphadenopathy. 4.7 cm x 3.8 cm mass in the posterior segment of the left lower lobe with small pleural effusion, will consult pulmonology, appreciate recommendations #Tobacco use Encourage cessation DVT prophylaxis: SCDs Gris Turner MD Charges/Coding Visit Charges Inpatient E&M: 14623 Subs Hosp L2
--- NOTE | 2022-05-17 07:06 | EX.PCM.CONCC ---
Assessment & Plan Assessment/Plan (1) Lung mass: PLAN: Plan RECOMMENDATIONS: 1. Discontinue albuterol and utilize Atrovent, especially in light of the patient's tachy arrhythmia. 2. Discuss case with radiology to see if an inpatient percutaneous biopsy can be achieved. 3. If inpatient biopsy cannot be arranged, we can assist the patient in scheduling a biopsy after discharge. 4. Recommend outpatient PFTs and 6-minute walk test. IMPRESSIONS: 1. Lung mass with associated mediastinal hilar adenopathy The patient presented with narrow complex tachycardia along with unintentional weight loss and intermittent hemoptysis. He has an extensive tobacco abuse history with radiographic evidence of a left lower lobe lung mass with associated mediastinal and bilateral hilar adenopathy. All of this is certainly concerning for an underlying malignancy with mets. At this time, there are 2 options for proceeding forward. The first would include a percutaneous CT-guided lung biopsy, which would secure a tissue diagnosis, but not a stage. Alternatively, an outpatient EBUS procedure could be arranged, which would allow mediastinal lymph node sampling, which could provide not only a diagnosis but a stage as well. If the patient is going to be admitted to the hospital for at least the next 24 hours, I would recommend touching base with radiology to see if it is feasible to biopsy the lesion while he is still admitted to the hospital. If not, we can arrange for an outpatient biopsy, either by CT guidance or EBUS, after discharge. 2. Chronic tobacco dependency/radiographic evidence of emphysema I personally spent 3 minutes discussing the deleterious effects of continued tobacco use with the patient, including modalities which could be utilized to achieve a smoke-free lifestyle. Again, recommend outpatient PFTs and 6-minute walk test. 3. Supraventricular tachycardia/unintentional weight loss/intermittent hemoptysis Complicates care, management, recovery and prognosis. Continue current medical management. Recommend discontinuation of albuterol and initiation of Atrovent aerosols given issues with tachycardia. This note was generated with [employer] dictation software. It may contain incorrect words, spelling, and punctuation that were not noted in checking the note before signing. HPI Consult Data Date of Consult: 05/17/22 HPI Narrative Reason for Consultation: Lung mass HPI Narrative: The patient is a 71-year-old male, with a history as outlined below, who presented to the emergency department on May 16 with heart palpitations and tachycardia. The patient was being prepared for outpatient PFTs and was noted to be tachycardic and was therefore referred to the emergency department for evaluation. The patient does have an extensive tobacco abuse history and continues to smoke 0.5 packs of cigarettes per day. He did grow up in a smoking household. He has never been evaluated by a dairy nutritionist. He does currently have access to albuterol at his baseline, which she utilizes on an as-needed basis. He does report symptom improvement with use of the medication. The patient also endorses the presence of unintentional weight loss of approximately 30 pounds over the last 6 months. He has also experienced intermittent hemoptysis as well. On presentation to the emergency department, the patient was noted to be afebrile and hemodynamically stable. He was, nevertheless, notably tachycardic. Initial laboratory evaluation revealed no evidence of a leukocytosis. Coagulation profile was unremarkable. Chemistry profile was likewise unrevealing. A CT chest with contrast demonstrated significant bilateral emphysematous changes with subpleural interstitial septal thickening along with a large lung mass in the posterior aspect of the left lower lobe and extensive mediastinal and hilar adenopathy. [facility] Medical History (Updated 05/17/22 @ 08:[address] Amaury Landa DO) Palpitation Home Medications NK 05/16/22 [History Last Taken Unknown] albuterol sulfate 90 mcg/actuation aerosol inhaler 2 inh inhalation Q4H SOB 05/16/22 [History Last Taken 05/16/22] loratadine 10 mg tablet (Claritin) 10 mg PO DAILY ALLERGIES 05/16/22 [History Last Taken 05/15/22] Allergy/AdvReac Type Severity Reaction Status Date / Time Opioids - Morphine Analogues AdvReac Nausea Verified 05/16/22 10:44 [narcotics] Social History Smoking Status: Current every day smoker tobacco type: cigarettes ROS ROS Narrative 10 systems were reviewed with pertinent positives as noted in the HPI above. Physical Exam Const alert, oriented x3 and no apparent distress General Appearance: cooperative HEENT normocephalic and head/scalp atraumatic Eyes PERRL, EOMs intact bilaterally and conjunctivae normal Neck supple General: trachea midline Chest inspection of chest normal Resp normal respiratory effort Auscultation: diminished lung sounds; Negative for rales, rhonchi or wheezes Cardio regular rate and regular rhythm GI normal to inspection, nondistended, normoactive bowel sounds Extremity no clubbing, cyanosis or edema Skin no rashes or lesions noted Neuro oriented x3, CN's II-XII intact bilaterally and moves all extremities Psych cooperative and affect normal Lab / Micro Data Result Diagrams: 05/17/22 04:15 05/17/22 04:15 Labs: Laboratory Results - last 24 hr 05/16/22 10:58: WBC 9.0, RBC 5.08, Hgb 15.6, Hct 46.9, MCV 92.3, MCH 30.7, MCHC 33.3, RDW Std Deviation 45.3 H, RDW Coeff of Chiquis 13.2, Plt Count 269, MPV 8.5, Immature Gran % (Auto) 0.200, Neut % (Auto) 73.6 H, Lymph % (Auto) 16.3 L, Starr % (Auto) 7.4, Eos % (Auto) 2.1, Baso % (Auto) 0.4, Absolute Neuts (auto) 6.6, Absolute Lymphs (auto) 1.47, Nucleated RBC % 0 05/16/22 10:58: PT 13.9, INR 1.1, APTT 28.5 05/16/22 10:58: Sodium 139, Potassium 4.1, Chloride 105, Carbon Dioxide 28.0, Anion Gap 6, BUN 16, Creatinine 0.96, Estim Creat Clear Calc 72.62, Est GFR (MDRD) Af Amer 100, Est GFR (MDRD) Non-Af 82, BUN/Creatinine Ratio 16.6, Glucose 94, Calcium 9.8, Troponin I High Sens 12, TSH 1.30 05/16/22 13:18: Troponin I High Sens 17 05/16/22 13:18: Magnesium 2.2 05/17/22 04:15: WBC 7.2, RBC 4.02 L, Hgb 12.1 L, Hct 36.4 L, MCV 90.5, MCH 30.1, MCHC 33.2, RDW Std Deviation 44.1 H, RDW Coeff of Chiquis 13.2, Plt Count 230, MPV 9.0, Immature Gran % (Auto) 0.300, Neut % (Auto) 61.5, Lymph % (Auto) 24.3, Starr % (Auto) 9.7, Eos % (Auto) 3.6, Baso % (Auto) 0.6, Absolute Neuts (auto) 4.4, Absolute Lymphs (auto) 1.75, Nucleated RBC % 0 05/17/22 04:15: Sodium 140, Potassium 3.8, Chloride 107, Carbon Dioxide 26.0, Anion Gap 7, BUN 16, Creatinine 0.79, Estim Creat Clear Calc 67.45, Est GFR (MDRD) Af Amer 125, Est GFR (MDRD) Non-Af 103, BUN/Creatinine Ratio 20.3 H, Glucose 72 L, Calcium 8.6, Magnesium 1.8, Total Bilirubin 0.60, AST 12 L, ALT 12 L, Alkaline Phosphatase 62, Total Protein 5.9 L, Albumin 2.6 L, Globulin 3.3, Albumin/Globulin Ratio 0.8 L, Triglycerides 66, Cholesterol 172, LDL Cholesterol 120, VLDL Cholesterol 13, HDL Cholesterol 39 L Radiology Impression Chest X-Ray 05/16/22 10:54 IMPRESSION: Patchy infiltrates in both lungs as described suggestive of a patchy pneumonia superimposed on scarring. Blunting of the left costophrenic angle. Electronically Signed: Nam Christopher MD at 11:30 EDT , Chest CT 05/16/22 14:57 IMPRESSION: Mediastinal lymphadenopathy as well as bilateral hilar lymphadenopathy. 4.7 cm x 3.8 cm mass in the posterior segment of the left lower lobe with small left pleural effusion. This is superimposed on chronic interstitial fibrosis. Electronically Signed: Nam Christopher MD at 15:23 EDT , Charges/Coding Visit Charges Inpatient E&M: 89011 Init Hosp L3 Behavior Interventions Behavior Intervention: 97765 Smoking Cessation 3-10 min
[2022-05-17] MEDS: Metoprolol Tartrate 50 MG Tablet PO ×2 (09:25→21:05)
--- NOTE | 2022-05-17 09:55 | CASEMGMT ---
RN CM HOTEL GUEST SERVICE AGENT CM to room to meet with patient for initial transition planning/care coordination assessment. RN MARY introduced self and role at [facility]. Pt voices understanding and consents to assessment at this time. Pt resting in bed in no distress at this time. Pt is A/O at this time and answers all questions appropriately. Care providers, pharmacy, and demographics verified/updated at this time. PCP: Dr Alberts Specialists: none Preferred Pharmacy: [facility] Insurance: [facility] Prescription Benefit: yes Living Will/HPOA: Pt does not currently have LW/HCPOA and would like to talk w/SW to complete. While discussing AD, pt became tearful, stating, This might be terminal and I need to take care of this stuff. He shared w/RN CM about needing lung biopsy and that he is concerned he may have cancer and that it has metastasized. He also shared w/RN CM that he just lost both his mother and brother last year w/in a month of each other and that he had taken care of them in their home for about 4 months. He stated, I don't know how I had the strength to do what I did and now I don't know if I'll be around to help take care of my grandchildren. RN CM provided emotional support. Inquired if pt would like to talk w/comprehensive ophthalmologist, but he declines at this time. SWKristine, made aware of pt request to complete AD and above concerns/stressors. LNOK: Daughter, Alisa. Pt has 2 other children as well. Living Arrangements: Lives w/dtr, Alisa, and her 2 children, ages 3 and 4. Pt states he is independent w/ADL's and IADL's. He babysits his 2 grand children 5-6 days a week, while his daughter is @ work, usually from 5:30 AM until dinnertime. They live in a 2-story home w/2 steps to enter. Transportation: Pt states drives self and states no transportation concerns at this time. DME: Denies using any DME and denies needs at this time. Pt does not have a pulse ox, nebulizer, or home O2. HHC/SNF: No hx of either. No needs identified. Pt wishes to return home and states has no concerns with going home at time of discharge. Pt states he has smoked since the age of 24 and currently smokes 1/2 PPD. He does not drink ETOH. CM to follow for any further discharge planning/needs. Pt voices no further concerns/needs at this time. Advised pt to ask for CM if any further questions/concerns/needs arise. Voices understanding. PLAN: Home. CM to follow for possible need of nebulizer @ d/c. SW to see for AD and support. Chaka BLANCON RN CM
--- NOTE | 2022-05-17 13:32 | CASEMGMT ---
Social Work SW met with pt and assisted in completing Living Will and Health Care POA naming his daughter Alisa Canas. Original given to pt and copy placed on pt chart. SW also spoke with pt regarding diagnosis and offered support. Pt aware that SW will remain available for support if he has further needs. LEONOR Lamar
[2022-05-17] MEDS: Ipratropium 0.5 MG/2.5 ML SOLUTION INHALATION ×3 (14:47→22:52)
--- NOTE | 2022-05-17 18:40 | PN.CARD_ITS ---
Subjective Subjective The patient is awake and alert. He sensed 1 episode of his atrial dysrhythmia during the night. Otherwise he states he has had no recurrent events. He denies any other acute symptoms at this time. Objective Data Vital Signs: Vital Signs Temp Pulse Resp BP Pulse Ox O2 Del Method 98.4 F 67 16 117/69 97 Room Air 05/17/22 15:15 05/17/22 15:15 05/17/22 15:15 05/17/22 15:15 05/17/22 15:15 05/17/22 15:15 Oxygen Delivery Method Room Air Weight: 169 lb 12.095 oz Body Mass Index (BMI) 25.2 Intake & Output: Intake and Output for Last 24 Hours 05/15/22 05/16/22 05/17/22 23:59 23:59 23:59 Intake Total 2137.5 / 2337.5 2305 / 2305 Balance 2137.5 / 2337.5 2305 / 2305 Lab / Micro Data Result Diagrams: 05/17/22 04:15 05/17/22 04:15 Labs: Laboratory Results - last 24 hr 05/17/22 04:15: WBC 7.2, RBC 4.02 L, Hgb 12.1 L, Hct 36.4 L, MCV 90.5, MCH 30.1, MCHC 33.2, RDW Std Deviation 44.1 H, RDW Coeff of Chiquis 13.2, Plt Count 230, MPV 9.0, Immature Gran % (Auto) 0.300, Neut % (Auto) 61.5, Lymph % (Auto) 24.3, [place] % (Auto) 9.7, Eos % (Auto) 3.6, Baso % (Auto) 0.6, Absolute Neuts (auto) 4.4, Absolute Lymphs (auto) 1.75, Nucleated RBC % 0 05/17/22 04:15: Sodium 140, Potassium 3.8, Chloride 107, Carbon Dioxide 26.0, Anion Gap 7, BUN 16, Creatinine 0.79, Estim Creat Clear Calc 67.45, Est GFR (MDRD) Af Amer 125, Est GFR (MDRD) Non-Af 103, BUN/Creatinine Ratio 20.3 H, Glucose 72 L, Calcium 8.6, Magnesium 1.8, Total Bilirubin 0.60, AST 12 L, ALT 12 L, Alkaline Phosphatase 62, Total Protein 5.9 L, Albumin 2.6 L, Globulin 3.3, Albumin/Globulin Ratio 0.8 L, Triglycerides 66, Cholesterol 172, LDL Cholesterol 120, VLDL Cholesterol 13, HDL Cholesterol 39 L Cardiology Labs/Tests 05/17/22 04:15: WBC 7.2, RBC 4.02 L, Hgb 12.1 L, Hct 36.4 L, MCV 90.5, MCH 30.1, MCHC 33.2, Plt Count 230, MPV 9.0, Immature Gran % (Auto) 0.300, Neut % (Auto) 61.5, Lymph % (Auto) 24.3, [place] % (Auto) 9.7, Eos % (Auto) 3.6, Baso % (Auto) 0.6, Absolute Neuts (auto) 4.4, Nucleated RBC % 0 05/17/22 04:15: Sodium 140, Potassium 3.8, Chloride 107, Carbon Dioxide 26.0, Anion Gap 7, BUN 16, Creatinine 0.79, Est GFR (MDRD) Af Amer 125, Est GFR (MDRD) Non-Af 103, BUN/Creatinine Ratio 20.3 H, Glucose 72 L, Calcium 8.6, Magnesium 1.8, Total Bilirubin 0.60, Triglycerides 66, Cholesterol 172, LDL Cholesterol 120, VLDL Cholesterol 13, HDL Cholesterol 39 L Rhythm: Sinus rhythm with an episode appearing compatible with a paroxysmal atrial flutter ECHO: See below Radiography Diagnostic Testing: Radiology Impression Echocardiogram 05/16/22 14:14 Interpretation Summary Left ventricular systolic function is normal. The estimated ejection fraction is 65 %. There is mild to moderate mitral annular calcification. Extension of the mitral annular calcification onto the base of the posterior mitral valve leaflet. Trivial mitral valve insufficiency. Trivial tricuspid valve insufficiency. Trivial pulmonic valve insufficiency. Right ventricular systolic pressure estimated to be 36 mmHg. Stage 2 diastolic dysfunction. Ordering Physician: Gris Turner Referring Physician: Tess Alberts M.D. Performed By: Sumaya Marinelli RCS Assessment & Plan Assessment/Plan (1) SVT (supraventricular tachycardia): PLAN: He does have an episode of a narrow complex tachycardia with a rate of approximately 170 bpm which appeared, per the [facility] emergency department staff, to terminate with a Valsalva maneuver. This would lend to an underlying reentry mechanism tachycardia such as an AVNRT. This would be a rhythm that would be amenable to EPS/RFA. He has been started on medical management with a beta-yuri. (2) Atrial fibrillation with RVR: PLAN: He also has findings appearing compatible with atrial fibrillation/flu tter. The etiology is of an underlying atrial dysrhythmia such as atrial fibrillation may be related to his underlying age and pulmonary disease process. His echocardiogram is noted. In the interim he can be treated medically with rate control therapy. Ideally there would be anticoagulant therapy initiated, however, he has had recurrent hemoptysis, and he does have an underlying pulmonary mass lesion suspicious for an underlying lung carcinoma. Thus, anticoagulation therapy may be on indefinite hold at this time. (3) Dyspnea: PLAN: He does have chronic shortness of breath and dyspnea. There is concern as to whether or not this is related to an underlying primary pulmonary disease process. This could be findings compatible with underlying COPD. At the same time he has been found to have an underlying pulmonary lesion. There is concern this is a lung carcinoma. At the moment it appears the plan is for an outpatient pulmonology follow-up visit and outpatient CT-guided lung biopsy. (4) Hemoptysis: PLAN: He did complain of an element appearing compatible with hemoptysis. Again based upon his CT scan there is concern of an underlying pulmonary mass lesion concerning for lung carcinoma. Addt'l Comments The above was discussed and reviewed with the patient. He states he is not surprised if he does have underlying lung carcinoma based upon his longstanding tobacco history and pulmonary disease process. At the moment he is in agreement with continued medical management. The pros and cons of anticoagulant therapy were discussed with him. He acknowledges this information. He will continue medical therapy with plans for future outpatient follow-up. The patient's case was previously discussed with Dr. Duvall. This note was generated using a voice recognition system and there may be incorrect words, spelling or punctuation that were not noted when reviewing the office note prior to saving. Procedure Criteria Type of Procedure Procedure Type: Elective Elective Risks - COVID COVID Risk Discussion: The surgeon/proceduralist and patient have discussed in detail the risk of exposure to and/or potential harm posed by the COVID-19 virus with having a surgery/procedure at this time versus the risk of delaying the surgery/procedur e. It is not possible to know either the risk of delaying the surgery or procedure or chance of getting an infection with perfect accuracy, but a joint decision was made between the patient and the surgeon/proceduralist to proceed at this time with the scheduled surgery/procedure as indicated on the consent form.
[2022-05-17] MEDS: MELATONIN 10 MG TABLET PO (21:05)
[2022-05-17] MEDS: hydrOXYzine PAM 25 MG Capsule PO (21:05)
[2022-05-18] VITALS (8 sets, daily range): BP systolic 111–112; BP diastolic 65–68; PULSE 47–65; RESP 16–20; TEMP 36.3–36.4; O2SAT 96
[2022-05-18] MEDS: Ipratropium 0.5 MG/2.5 ML SOLUTION INHALATION ×2 (02:08→06:56)
[2022-05-18 05:59] LABS: Absolute Lymphocyte Count 1.64 X10^3/uL (0.83-4.51); Absolute Neutrophil Count 4.1 X10^3/uL (2.0-7.7); Basophil# 0.04 X10^3/uL; Basophil% 0.6 % (0-1); Eosinophil# 0.32 X10^3/uL; Eosinophils% 4.6 % (0-5); Hemoglobin 12.4 g/dL (13.0-16.5); Lymphocyte # 1.64 X10^3/ul (0.83-4.51); Lymphocyte % 23.7 % (19-41); Mean Corp Hgb Conc 33.5 g/dL (32-36); Mean Corpuscular Hgb 30.4 pg (27.0-32.0); Mean Corpuscular Volume 90.7 fL (80-94); Monocyte# 0.77 X10^3/uL; Monocyte% 11.1 % (0-10); NRBC Flagged by Analyzer 0 % (0-5); Neutrophil # 4.14 X10^3/uL (2.7-7.7); Neutrophil % 59.7 % (47-70); Platelet Count 227 K/mm3 (150-450); RBC Distribution Width CV 13.2 % (11.6-14.6); RBC Distribution Width SD 43.7 fl (35.1-43.9); Red Blood Count 4.08 M/mm3 (4.6-6.2); White Blood Count 6.9 K/mm3 (4.4-11.0)
[2022-05-18 06:38] LABS: ALB/GLOB Ratio 0.8 RATIO (0.9-2.4); AST(SGOT) 10 U/L (15-37); Alanine Aminotransfer ALT/SGPT 12 U/L (16-61); Albumin, Serum 2.7 g/dL (3.2-5.0); Alkaline Phosphatase 63 U/L (45-117); Anion Gap 5 (5-15); BUN 17 mg/dL (7-18); BUN/Creat Ratio 19.2 RATIO (10-20); Calcium,Total 8.6 mg/dL (8.5-10.1); Chloride 106 mmol/L (98-107); Creatinine, Serum 0.89 mg/dL (0.70-1.30); EST Glomerular Filtration Rate 90 mL/min (>60); Est Glom Filt Rate - Afr Amer 109 mL/min (>60); Estimated Creatinine Clearance 75.79 ml/min; Globulin 3.4 g/dL (2.2-4.2); Glucose 126 mg/dL (74-106); Potassium 3.4 mmol/L (3.5-5.1); Protein, Total 6.1 g/dL (6.4-8.2); Sodium Level 140 mmol/L (136-145)
--- NOTE | 2022-05-18 07:55 | PN.CC_ITS ---
Assessment & Plan Assessment/Plan (1) Lung mass: PLAN: Plan RECOMMENDATIONS: 1. Continue Atrovent aerosols. 2. Perform walking oximetry study prior to consideration for discharge home. 3. Recommend outpatient PFTs. 4. The patient has been scheduled for a pulmonary medicine office visit on May 22 at 2:15 PM. IMPRESSIONS: 1. Lung mass with associated mediastinal hilar adenopathy The patient presented with narrow complex tachycardia along with unintentional weight loss and intermittent hemoptysis. He has an extensive tobacco abuse history with radiographic evidence of a left lower lobe lung mass with associate d mediastinal and bilateral hilar adenopathy. All of this is certainly concerning for an underlying malignancy with mets. At this time, there are 2 options for proceeding forward. The first would include a percutaneous CT- guided lung biopsy, which would secure a tissue diagnosis, but not a stage. Alternatively, an outpatient EBUS procedure could be arranged, which would allow mediastinal lymph node sampling, which could provide not only a diagnosis but a stage as well. At this time, recommend follow-up in the pulmonary medicine clinic as scheduled next week. At that time we can arrange for a CT-guided lung biopsy, if one can be completed in expedient manner. If not, an EBUS procedure can be arranged as well. 2. Chronic tobacco dependency/radiographic evidence of emphysema Tobacco cessation counseling was provided. Again, recommend outpatient PFTs and 6-minute walk test. 3. Supraventricular tachycardia/unintentional weight loss/intermittent hemoptysis Complicates care, management, recovery and prognosis. Continue current medical management. Continue Atrovent aerosol treatments. This note was generated with [employer] dictation software. It may contain incorrect words, spelling, and punctuation that were not noted in checking the note before signing. Subjective Subjective The patient was seen and examined at the bedside this morning. Events from the last 24 hours have been reviewed. The patient is currently afebrile, hemodynamically stable and maintaining appropriate oxygen saturations on room air. No overnight issues were identified. Objective Data Objective Data The patient's most recent lab work, culture data and imaging studies have all been personally reviewed. Vital Signs: Vital Signs Temp Pulse Resp BP Pulse Ox O2 Del Method 97.6 F L 62 20 H 112/65 96 Room Air 05/18/22 03:20 05/18/22 03:20 05/18/22 03:20 05/18/22 03:20 05/18/22 03:20 05/18/22 03:20 Oxygen Delivery Method Room Air Weight: 166 lb 14.239 oz Body Mass Index (BMI) 25.2 Intake & Output: Intake and Output for Last 24 Hours 05/16/22 05/17/22 05/18/22 23:59 23:59 23:59 Intake Total 2137.5 / 2337.5 2305 / 2405 200 / 200 Balance 2137.5 / 2337.5 2305 / 2405 200 / 200 Lab / Micro Data Attestation: I reviewed the patient's lab results. Result Diagrams: 05/18/22 04:18 05/18/22 04:18 Labs: Laboratory Results - last 24 hr 05/18/22 04:18: WBC 6.9, RBC 4.08 L, Hgb 12.4 L, Hct 37.0 L, MCV 90.7, MCH 30.4, MCHC 33.5, RDW Std Deviation 43.7, RDW Coeff of Chiquis 13.2, Plt Count 227, MPV 9.0, Immature Gran % (Auto) 0.300, Neut % (Auto) 59.7, Lymph % (Auto) 23.7, [place] % (Auto) 11.1 H, Eos % (Auto) 4.6, Baso % (Auto) 0.6, Absolute Neuts (auto) 4.1, Absolute Lymphs (auto) 1.64, Nucleated RBC % 0 05/18/22 04:18: Sodium 140, Potassium 3.4 L, Chloride 106, Carbon Dioxide 29.0, Anion Gap 5, BUN 17, Creatinine 0.89, Estim Creat Clear Calc 75.79, Est GFR (MDRD) Af Amer 109, Est GFR (MDRD) Non-Af 90, BUN/Creatinine Ratio 19.2, Glucose 126 H, Calcium 8.6, Total Bilirubin 0.30, AST 10 L, ALT 12 L, Alkaline Phosphatase 63, Total Protein 6.1 L, Albumin 2.7 L, Globulin 3.4, Albumin/Globulin Ratio 0.8 L Radiography Diagnostic Testing: Radiology Impression Echocardiogram 05/16/22 14:14 Interpretation Summary Left ventricular systolic function is normal. The estimated ejection fraction is 65 %. There is mild to moderate mitral annular calcification. Extension of the mitral annular calcification onto the base of the posterior mitral valve leaflet. Trivial mitral valve insufficiency. Trivial tricuspid valve insufficiency. Trivial pulmonic valve insufficiency. Right ventricular systolic pressure estimated to be 36 mmHg. Stage 2 diastolic dysfunction. Ordering Physician: Gris Turner Referring Physician: Tess Alberts M.D. Performed By: Sumaya Marinelli RCS Physical Exam Const alert, oriented x3 and no apparent distress General Appearance: cooperative HEENT normocephalic and head/scalp atraumatic Eyes PERRL, EOMs intact bilaterally and conjunctivae normal Neck supple General: trachea midline Chest inspection of chest normal Resp normal respiratory effort Auscultation: diminished lung sounds; Negative for rales, rhonchi or wheezes Cardio regular rate and regular rhythm GI normal to inspection, nondistended, normoactive bowel sounds Extremity no clubbing, cyanosis or edema Skin no rashes or lesions noted Neuro oriented x3, CN's II-XII intact bilaterally and moves all extremities Psych cooperative and affect normal Charges/Coding Visit Charges Inpatient E&M: 27749 Subs Hosp L2
[2022-05-18] MEDS: Metoprolol Tartrate 50 MG Tablet PO (08:24)
[2022-05-18] MEDS: Potassium Chloride Oral Tablet 20 MEQ PO (10:04)
--- NOTE | 2022-05-18 10:39 | CASEMGMT ---
JAMIA HERNANDEZ note: Pt stated he is thinking about switching PCP's. Pt provided w/list of local PCP's. Pt voiced appreciation. He denies having other discharge planning needs or concerns. Chaka AGUDELO RN CM
--- NOTE | 2022-05-18 11:46 | PCM.DC ---
Discharge Instructions Diet Discharge Diet: No restrictions Activity Discharge Activity: Return to Normal Activity Follow Up Care Test Results: Test results from this visit will be discussed in further detail at your follow-up appointment, if applicable. Discharge Plan Admission Admit Date/Time: 05/16/22 13:20 Primary Reason for Your Visit: Fast heart rate Attending Provider: Gris Turner Primary Care Provider: Tess Alberts Consulting Providers: Nima Edwards ; Servando Michelle ; Amaury Landa ; Thomas Hoffmann ; Abbe Izaguirre ; Bibi Lugo MANAGER PATIENT Instructions Patient Instructions: AFib Additional Instructions / Restrictions: *Please take this with you to your next doctors appointment* ? It is recommended that you follow with pulmonology as an outpatient, you will need outpatient pulmonary function tests and a 6-minute walk test and that can be arranged through their office ?Additionally you will need outpatient work-up for the mass seen on your CT scan, you will follow-up with Dr. Landa in the office next week on Sunday05/22/22 at 215 pm. You have any questions or concerns please contact the office of Dr. Landa. -Due to your irregular heart rhythm you will be with metoprolol and you will need to take a baby aspirin daily. Your medications have been sent to your preferred pharmacy on file, [facility] in [place] [facility] -Please follow-up with cardiology on discharge ? Patiently will be discharged on Atrovent to help with her breathing -Please call your primary care provider's office upon discharge to schedule a hospital follow up within 1 week, this is very important for further coordination of care -For any concerning signs or symptoms please call 911 or proceed to the nearest emergency department Discharge Orders/Prescriptions Prescriptions: New metoprolol tartrate 50 mg Tablet 50 mg PO BID 30 Days Qty: 60 2RF Atrovent HFA 17 mcg/actuation HFA aerosol inhaler 2 puff inhalation TID Qty: 12.9 0RF aspirin 81 mg tablet,delayed release (DR/EC) 81 mg PO DAILY Qty: 30 2RF Continued loratadine [Claritin] 10 mg Tablet 10 mg PO DAILY Discontinued albuterol sulfate 90 mcg/actuation HFA aerosol inhaler 2 inh INHALATION Q4H Label Comments: INHALE 2 PUFFS BY MOUTH EVERY 4 HOURS NEEDED FOR SHORTNESS OF BREATH/WHEEZING Referrals / Follow Up: Amaury Landa DO [Med Staff - Active Staff] - 05/22/22 2:15 pm Tess Alberts MD [Primary Care Provider] - Within 1 Week Nima Edwards MD [Med Staff - Active Staff] - Within 1 Month (Please call the cardiology office upon discharge to schedule a routine hospital follow-up appointment with Dr. Edwards) Disposition Disposition (needs filled in before D/C Order can be placed): Home, Self Care
--- NOTE | 2022-05-18 11:52 | PCM.DC.SUM ---
Providers Date of Admission: 05/16/22 Date of Discharge: 05/18/22 Primary Care Physician: Dr. Tess Alberts MD Consultations 05/16/22 14:14 Consult: Cardiology Routine Consulting Provider: Nima Edwards Reason for Consult: Tachyarrhythmia EMERGENT Consult: No Notified: Yes Date Notified: 05/16/22 Time Notified: 13:21 Method of Notification: ED Physician Initiated 05/16/22 18:56 Consult: Channel Process Supervisor / Pulmonary Medicine Routine Consulting Provider: Pulmonary Medicine [facility] Reason for Consult: 4.7cmx3.8cm mass in LLlobe w/ lymphadenopathy and weight loss EMERGENT Consult: No MD Notified: Yes Date Notified: 05/16/22 Time Notified: 19:55 Method of Notification: Text Reason For Visit: TACHYARRHYTHMIA Diagnosis Discharge Diagnosis (1) Lung mass: Status: Acute Code(s): R91.8 - Other nonspecific abnormal finding of lung field (2) SVT (supraventricular tachycardia): Status: Acute Code(s): I47.1 - Supraventricular tachycardia (3) Atrial fibrillation with RVR: Status: Acute Code(s): I48.91 - Unspecified atrial fibrillation Plan #Narrow complex tachycardia- likely SVT #Dyspnea #Lung mass #afib with RVR #Hemoptysis #Tobacco use Medications at Discharge Home Medications loratadine 10 mg tablet (Claritin) 10 mg PO DAILY ALLERGIES 05/16/22 aspirin 81 mg tablet,delayed release 81 mg PO DAILY #30 tabs 05/18/22 ipratropium bromide 17 mcg/actuation HFA aerosol inhaler (Atrovent HFA) 2 puff inhalation TID #12.9 grams 05/18/22 metoprolol tartrate 50 mg tablet 50 mg PO BID 30 days #60 tabs 05/18/22 Hospital Course Procedures 2-D Echocardiogram and EKG Summary of Care Provided Minutes Spent on Discharge: 32 Hospital Course: Mr. Canas is a 71-year-old male with a history of tobacco use who [facility] due to a fast heartbeat that was detected when he went for lung cancer screening. He was found to have a heart rate of 170 bpm, EKG looked to be SVT and it did jeanette with Valsalva, he he later went into what appeared to be A. fib with RVR and was given diltiazem and converted, cardiology was consulted and hospitalist requested for admission. He reported that he had been having off-and-on periods of racing heart over 3 months and would last 5 to 10 minutes often would go away when he leans forward but sometimes would not. Denied any exacerbating or relieving factors. Did note during ROS that he is lost 30 pounds unintentionally, does have shortness of breath which has been worsening over time and does have chronic cough. He was unable to complete the lung cancer screening and has had minimal doctor follow-up for the past 15 years. He was admitted and started on metoprolol, [id number] 1 and was not immediately started on anticoagulation in part because he had been reporting hemoptysis. Chest x-ray nonspecific so CTA obtained which showed a mass in his left posterior lung 4.7 cm x 3.8 cm with additional bilateral hilar lymphadenopathy concerning for malignancy. Pulmonology consulted and recommended EBUS or CT-guided biopsy outpatient versus CT-guided biopsy inpatient. Initially considered the inpatient option however given extensive emphysematous changes and risk for pneumothorax decision was made to follow-up in [address] Landa with plans for likely EBUS as this also would assist with staging. He did well on metoprolol and after discussing with both cardiology and pulmonology, will hold off with full dose anticoagulation but will discharge with aspirin. Did discuss anticoagulation with Mr. Canas as well as well as risks and benefits. He verbalized his understanding and that he is to take a baby aspirin daily. Additionally will discharge with Atrovent, albuterol was DC'd due to his tachyarrhythmia. He will be discharged home in stable condition with pulmonology follow-up and cardiology follow-up. He was seen and evaluated on the date of discharge 05/18/2022 and reported he was feeling better, no further tachyarrhythmias overnight. Notes he does find the metoprolol helpful overall, breathing has improved as well, as his cough. He denies any other further concerns. Discharged home in stable condition Physical Exam Const alert and no apparent distress Constitutional Narrative: Oriented HEENT normocephalic and head/scalp atraumatic Eyes Eyes Narrative: EOM grossly intact, anicteric Neck supple Resp Resp Narrative: Diffusely coarse Cardio Cardio Narrative: Regular rate and rhythm GI soft to palpation, non-tender and non-distended Extremity Extremity Narrative: No edema appreciated Neuro moves all extremities Neuro Narrative: No overt focal deficits appreciated Psych Psych Narrative: Cooperative Weight / BMI Weight Weight: 75.7 kg Body Mass Index (BMI) 25.2 ABG / Lab / Microbiology Data Result Diagrams: 05/18/22 04:18 05/18/22 04:18 Laboratory: Laboratory Results - last 24 hr 05/18/22 04:18: WBC 6.9, RBC 4.08 L, Hgb 12.4 L, Hct 37.0 L, MCV 90.7, MCH 30.4, MCHC 33.5, RDW Std Deviation 43.7, RDW Coeff of Chiquis 13.2, Plt Count 227, MPV 9.0, Immature Gran % (Auto) 0.300, Neut % (Auto) 59.7, Lymph % (Auto) 23.7, [place] % (Auto) 11.1 H, Eos % (Auto) 4.6, Baso % (Auto) 0.6, Absolute Neuts (auto) 4.1, Absolute Lymphs (auto) 1.64, Nucleated RBC % 0 05/18/22 04:18: Sodium 140, Potassium 3.4 L, Chloride 106, Carbon Dioxide 29.0, Anion Gap 5, BUN 17, Creatinine 0.89, Estim Creat Clear Calc 75.79, Est GFR (MDRD) Af Amer 109, Est GFR (MDRD) Non-Af 90, BUN/Creatinine Ratio 19.2, Glucose 126 H, Calcium 8.6, Total Bilirubin 0.30, AST 10 L, ALT 12 L, Alkaline Phosphatase 63, Total Protein 6.1 L, Albumin 2.7 L, Globulin 3.4, Albumin/Globulin Ratio 0.8 L D/C Instructions Discharge Diet: No restrictions Meaningful Use Info Meaningful Use Diagnoses (Choose all that apply): None applicable Discharge Plan Admission Admit Date/Time: 05/16/22 13:20 Primary Reason for Your Visit: Fast heart rate Attending Provider: Gris Turner Primary Care Provider: Tess Alberts Consulting Providers: Nima Edwards ; Servando Michelle ; Amaury Landa ; Thomas Hoffmann ; Abbe Izaguirre ; Bibi Lugo HAY CHOPPER Instructions Patient Instructions: AFib Additional Instructions / Restrictions: *Please take this with you to your next doctors appointment* ? It is recommended that you follow with pulmonology as an outpatient, you will need outpatient pulmonary function tests and a 6-minute walk test and that can be arranged through their office ?Additionally you will need outpatient work-up for the mass seen on your CT scan, you will follow-up with Dr. Landa in the office next week on Sunday05/22/22 at 215 pm. You have any questions or concerns please contact the office of Dr. Landa. -Due to your irregular heart rhythm you will be with metoprolol and you will need to take a baby aspirin daily. Your medications have been sent to your preferred pharmacy on file, [facility] -Please follow-up with cardiology on discharge ? Patiently will be discharged on Atrovent to help with her breathing -Please call your primary care provider's office upon discharge to schedule a hospital follow up within 1 week, this is very important for further coordination of care -For any concerning signs or symptoms please call 911 or proceed to the nearest emergency department Discharge Orders/Prescriptions Prescriptions: New metoprolol tartrate 50 mg Tablet 50 mg PO BID 30 Days Qty: 60 2RF Atrovent HFA 17 mcg/actuation HFA aerosol inhaler 2 puff inhalation TID Qty: 12.9 0RF aspirin 81 mg tablet,delayed release (DR/EC) 81 mg PO DAILY Qty: 30 2RF Continued loratadine [Claritin] 10 mg Tablet 10 mg PO DAILY Discontinued albuterol sulfate 90 mcg/actuation HFA aerosol inhaler 2 inh INHALATION Q4H Label Comments: INHALE 2 PUFFS BY MOUTH EVERY 4 HOURS NEEDED FOR SHORTNESS OF BREATH/WHEEZING Referrals / Follow Up: Amaury Landa DO [Med Staff - Active Staff] - 05/22/22 2:15 pm Tess Alberts MD [Primary Care Provider] - Within 1 Week Nima Edwards MD [Med Staff - Active Staff] - Within 1 Month (Please call the cardiology office upon discharge to schedule a routine hospital follow-up appointment with Dr. Edwards) Disposition Disposition (needs filled in before D/C Order can be placed): Home, Self Care Charges/Coding Visit Charges Inpatient E&M: 27885 Disch Hosp
== END 2022-05-18 12:23 | disposition home or self-care (01) | DRG 309 ==
LOC: ED 12:58 → PCU 05-17 04:59
PROVIDERS: Admitting Provider Internal Medicine; Emergency Provider Emergency Medicine; PCP Internal Medicine; Visit Provider Internal Medicine
DX: I47.1 Supraventricular tachycardia (principal); R04.2 Hemoptysis; I48.91 Unspecified atrial fibrillation; J44.9 Chronic obstructive pulmonary disease, unspecified; F17.210 Nicotine dependence, cigarettes, uncomplicated; R59.1 Generalized enlarged lymph nodes; R91.8 Other nonspecific abnormal finding of lung field; R63.4 Abnormal weight loss; Z71.6 Tobacco abuse counseling; Z68.25 Body mass index [BMI] 25.0-25.9, adult
CPT/HCPCS: 36415; 71045; 71260; 80048; 80053; 80061; 83735; 84443; 84484; 85025; 85610; 85730; 93005; 93306; 94640; 99285; 99406; J7030; Q9967; A4216

== ENCOUNTER → 2022-05-29 | Outpatient (CLI) | payer MEDICARE, SELFPAY ==
[2022-05-29] VITALS (12 sets, daily range): BP systolic 93–128; BP diastolic 30–114; PULSE 57–70; RESP 14–26; TEMP 36.4; O2SAT 91–100; BMI 24.9
--- NOTE | 2022-05-29 | IMM_PTH ---
PATIENT: DENG MARQUEZ LOC: CT U#:[id number] AGE/SX: 71/M ROOM: RE05/29/[address]: IMANI Mitchell : 1950 BED: DIS: 05/29/2022 SPEC #: [id number] RECD: 05/30/22 11:43 STATUS: GUY REQ #: [id number] MARTA: 05/29/22 00:[address]: Bibi Lugo NP DEPT: IMMUNOHISTOCHEMISTRY RECD BY: Cari Umana ENTERED: 05/30/22 11:45 SP TYPE: IMMUNO OTHR DR: Dr. Tess Alberts MD Tissues: Left lung, NOS Procedures: Synapto (add) RCC (add) NAPSIN A (add) CD56 (add) CEA (add) CHROMO (add) CK20 (add) CK5-6 (add) CK7 (add) FOWLER-2 (add) KI-67 (add) P53 (add) TTF1 (add) 34BE12 (add) Pankeratin (initial) P40 (add) CDX2 (add) PSAP (add) NSE (add) PHYSICIAN & INSTITUTION [place] [id number] SPECIMEN INFORMATION: Tissue Source: Left lung Clinical Info: Left lung mass Specimen Number: [id number] CPT code: 66504, 71241 x18 METHODOLOGY: Deparaffinized sections of prefer/formalin-fixed tissue or PAP/DQ stained slides are incubated with monoclonal/polyclonal antibodies/oligonucleotide probes. Localization is made via biotin free immunoperoxidase method. Appropriate controls are performed and reacted as expected. Results on target cell population are indicated in the following table: RESULTS: ANTIBODY / CLONE RESULT AE1-3 (AE1/AE3/PCK26) positive CK7 (OV-TL12/30) positive CK20 (KS20.8) negative FOWLER-2 (SP21) negative CDX2 (RRI9988N) negative 34BE12 (34BE12) positive, focal TTF-1 (8G7G3/1) positive Napsin A (Rabbit Polyclonal) positive RCC (PN-15) negative PSAP (PASE/4LJ) negative CK5-6 (D5 & 1684) negative P40 (BC28) negative P53 (DO-7) negative Ki-67 (30-9) positive, >95% CD56 (123C3.D5) negative Chromo (LK2H10) negative Synapto (polyclonal) negative NSE Neuron Specific Enolase negative CEA (11-7/TF-3HB-1) negative These tests were developed and their performance characteristics determined by [facility]. They may not have been cleared or approved by the U.S. Food and Drug Administration. The FDA has determined that such clearance or approval is not necessary. The above immunohistochemical/dualISH markers are ordered and reviewed by the Pathologist. INTERPRETATION: Left lung mass, CT-guided core biopsy: Non-small cell carcinoma, adenocarcinoma. See comment. AM:farzana 06/01/2022 Comment: The IHC profile favors a lung primary.
--- NOTE | 2022-05-29 | ASPIGT_PTH ---
PATIENT: DENG MARQUEZ LOC: CT U#:[id number] AGE/SX: 71/M ROOM: RE05/29/[address]: IMANI Mitchell : 1950 BED: DIS: 05/29/2022 SPEC #: [id number] RECD: 05/29/22 10:16 STATUS: GUY RENEA #: [id number] MARTA: 05/29/22 00:[address]: Bibi Lugo NP DEPT: SURGICAL PATHOLOGY RECD BY: Quinn Madrigal ENTERED: 05/29/22 10:17 SP TYPE: ASP RAD OT DR: Dr. Tess Alberts MD Tissues: Lung, NOS Procedures: FNA Specimen Adequacy Special Stain Group II Surgery Specimen Level IV Imprint (control) HEADER OPERATION: CT-guided left lung biopsy PRE-OP DIAGNOSIS: Left lung mass TISSUE SUBMITTED: Left lung 20-gauge x4 MICROSCOPIC DIAGNOSIS Left lung mass, CT-guided core biopsy: Adenocarcinoma. See comment. AM:farzana 05/30/2022 COMMENT Immunohistochemistry ([id number]) supports the above diagnosis and favors a lung primary. MICROSCOPIC DESCRIPTION Slides are reviewed. GROSS DESCRIPTION Received is one container labeled with the patient's name and not further designated. The specimen consists of multiple irregular and elongated fragments of stephen tissue that in aggregate measure 1 x 0.5 x <0.1 cm. The specimen is totally submitted in one cassette. / AM:farzana 05/29/2022 TC:0 CPT: 76324 ADDENDUM ADDENDUM ADDENDUM ADDENDUM ADDENDUM ADDENDUM ADDENDUM ADDENDUM ADDENDUM ADDENDUM ADDENDUM ADDENDUM ADDENDUM ADDENDUM ADDENDUM ADDENDUM ADDENDUM ADDENDUM ADDENDUM ADDENDUM ADDENDUM ADDENDUM 07/07/2022 15:34 ADDENDUM 07/07/2022 15:34 ADDENDUM 07/07/2022 15:34 ADDENDUM 07/07/2022 15:34 ADDENDUM 07/07/2022 15:34 PD-L1 ([employer]) IMMUNOHISTOCHEMICAL ANALYSIS FROM [facility] RESULTS: Tumor proportion score: 95% / Positive ONKOSIGHT ADVANCED LUNG CANCER NGS REPORT FROM [facility] RESULT SUMMARY: Abnormal High level TMB is detected. IMMUNOTHERAPY BIOMARKERS: Tumor Mutation [place]: High (12.5 Mutations / MB) Microsatellite Instability: MSI Negative PERTINENT NEGATIVE RESULTS: The following genes are NEGATIVE for clinically relevant mutations. Mutational hotspots and surrounding exonic regions were interrogated for DNA level point mutations and indels (fusions not assayed). AKT1, ALK, ATR, BRAF, CHEK1, DDR2, EGFR, ERBB2, ERBB3, FGFR1, KRAS, MAP2K1, MET, NRAS, NTRK1, PIK3CA, POLD1, POLE, ROS1, STK11 Please see complete report in e-chart or EMR
--- NOTE | 2022-05-29 07:56 | CT_ITS ---
PROCEDURE: CT GUIDED CORE NEEDLE BIOPSY OF A left lower lobe LUNG LESION INDICATION: Male, 71 years old. LLL mass -- on ASA PHYSICIAN: Dr. LAURIE Murray CONSENT: Written informed consent was obtained having explained the risks, benefits and alternatives in detail with the patient who accepted the risks and agreed to proceed. Laboratory review and clinical assessment was performed. CONSCIOUS SEDATION PROTOCOL: The Drugs used were: 1 mg Versed, IV., and 25 mg Fentanyl, IV. The sedation time was: 17 minutes. Conscious sedation was started at 9:43 AM and terminated at 10:00 AM. The conscious sedation protocol was independently monitored. RADIATION DOSAGE (If Supplied By Facility): CTDIvol = ( 15.2 ) mGy, DLP = ( 230.8 ) mGycm Individualized dose optimization techniques were used for this CT. TECHNIQUE: The patient was placed in the bone position. A noncontrast CT was performed to localize the lesion in the left lower lobe . The skin surface was prepped and draped in a sterile fashion. 1% lidocaine was used for local anesthesia. Using CT guidance, a 20-gauge coaxial biopsy device was advanced to the periphery of the lesion. A total of 4 core specimens were obtained. The specimens were placed in a formalin solution. A post procedure CT demonstrated no adverse sequelae or pneumothorax. The patient tolerated the procedure well without adverse event. A negative biopsy does not exclude malignancy. Further imaging or clinical followup based on patient condition and degree of clinical suspicion for malignancy. Suggest rebiopsy, if biopsy results do not match with clinical scenario. CT/Biopsy/Inj or Needle Placement IMPRESSION: 1. CT directed core needle biopsy of the left lower lobe lung nodule using CT image guidance with image documentation as described. Pathology results are pending. 2. Conscious Sedation protocol utilized with independent monitoring. Electronically Signed: Nam Christopher MD at 10:39 EDT ,
[2022-05-29 08:08] LABS: Platelet Count 268 K/mm3 (150-450)
[2022-05-29 08:36] LABS: Partial Thromboplast Time 28.9 Seconds (24.1-36.2)
[2022-05-29] MEDS: Midazolam 2 MG/2 ML Syringe IV (09:43)
[2022-05-29] MEDS: fentaNYL 100 MCG/2 ML Ampul IV (09:44)
--- NOTE | 2022-05-29 09:45 | RAD_ITS ---
STUDY: X-RAY CHEST REASON FOR EXAM: Male, 71 years old. Post biopsy -- Immediately post lung biopsy TECHNIQUE: AP inspiration and expiration views. COMPARISON: Comparison is made with prior study dated 05/16/2022. FINDINGS: Immediate post left lung biopsy radiographs. There is no evidence of pneumothorax. RAD/Chest Insp/Exp 2 View IMPRESSION: No evidence of pneumothorax on the immediate post left lung biopsy radiographs. Electronically Signed: Nam Christopher MD at 10:26 EDT ,
[2022-05-29] MEDS: Lidocaine 2% (20 ml mdv) 20 ML Vial (09:50)
[2022-05-29 10:13] LABS: Prothrombin Time (Protime)PT. 13.1 SECONDS (11.7-14.9)
--- NOTE | 2022-05-29 11:45 | RAD_ITS ---
STUDY: X-RAY CHEST REASON FOR EXAM: Male, 71 years old. Lung biopsy -- 2 hours post TECHNIQUE: AP inspiration and expiration views. COMPARISON: Comparison is made with prior study done earlier in the day. FINDINGS: No evidence of pneumothorax on the 2 hour post left lung biopsy radiographs. RAD/Chest Insp/Exp 2 View IMPRESSION: No evidence of pneumothorax on the two-hour post left lung biopsy radiographs. Electronically Signed: Nam Christopher MD at 12:13 EDT ,
== END | disposition home or self-care (01) ==
PROVIDERS: PCP Internal Medicine; Referring Provider Nurse Practitioner Acute Care; Visit Provider Nurse Practitioner Acute Care
DX: C34.92 Malignant neoplasm of unspecified part of left bronchus or lung (principal); I48.91 Unspecified atrial fibrillation; R91.8 Other nonspecific abnormal finding of lung field; R06.00 Dyspnea, unspecified
CPT/HCPCS: 32408; 36415; 71046; 77012; 85049; 85610; 85730; 88172; 88305; 88313; 88341; 88342; 99156; J7050; C2613

== ENCOUNTER → 2022-06-19 | Outpatient (CLI) | payer MEDICARE, SELFPAY ==
--- NOTE | 2022-06-19 06:15 | MRI_ITS ---
EXAM: MR HEAD WITHOUT AND WITH INTRAVENOUS CONTRAST CLINICAL INDICATION: STAGING NSCLC, no neuro symptoms TECHNIQUE: Multiplanar and multisequence MR images of the brain were obtained without and with intravenous contrast. This report was created using [employer] technology. CONTRAST: 15ML IV CLARISCAN COMPARISON: None. FINDINGS: BRAIN AND EXTRA-AXIAL SPACES: Normal. No intra- or extra-axial hemorrhage. No evidence of acute infarct. No intracranial mass or mass effect. No abnormal contrast enhancement. There is preservation of the bonner/white matter interface. Posterior fossa structures are unremarkable. Ventricles are appropriate for age. No hydrocephalus. Basal cisterns are patent. SELLA: Normal. Normal sella turcica, pituitary gland, infundibular stalk, optic chiasm and hypothalamus. AUDITORY SYSTEM: Normal. The internal auditory canals are patent. BONES/JOINTS: Intact calvarium. SINUSES: Mucosal thickening of the paranasal sinuses noted. MASTOID AIR CELLS: Unremarkable as visualized. Clear. ORBITS: Unremarkable as visualized. Both globes, extraocular muscles, optic nerves and retrobulbar fat appear unremarkable. VASCULATURE: Unremarkable as visualized. Normal flow voids in the major intracranial circulation. MRI/Brain W/WO Contrast IMPRESSION: No acute intracranial abnormality. No evidence of metastatic disease. Paranasal sinusitis. Electronically Signed: Jimmie Jacinto MD at 10:37 EST ,
== END | disposition home or self-care (01) ==
LOC: MRI 06:15
PROVIDERS: PCP Internal Medicine; Referring Provider Internal Medicine Hematology & Oncology; Visit Provider Internal Medicine Hematology & Oncology
DX: C34.32 Malignant neoplasm of lower lobe, left bronchus or lung (principal)
CPT/HCPCS: 70553; A9575

== ENCOUNTER 2022-07-05 12:16 | Emergency (ER) | payer MEDICARE, SELFPAY ==
[2022-07-05 12:19] VITALS: BP 98/60; PULSE 143; RESP 16; TEMP 36.6; O2SAT 98; BMI 26.1
--- NOTE | 2022-07-05 12:53 | EKG12_ITS ---
Test Reason : REPEAT Blood Pressure : / mmHG Vent. Rate : 105 BPM Atrial Rate : 072 BPM P-R Int : 000 ms QRS Dur : 090 ms QT Int : 370 ms P-R-T Axes : 000 047 -10 degrees QTc Int : 489 ms Atrial fibrillation Abnormal ECG Confirmed by ZACHARY ALDRIDGE, ALICIA ([id number]), videotape editor [facility]BY [facility] ([id number]) on 07/06/2022 2:06:08 PM Referred By: ALANIS Confirmed By:YUE SHARMA MD
--- NOTE | 2022-07-05 12:54 | EDS_ITS ---
HPI History of Present Illness Chief Complaint: Foreign Body Narrative Narrative: 71-year-old male past medical history of atrial fibrillation, lung carcinoma, presents with foreign body sensation of the esophagus since Sunday, 4 days ago. He states he was eating regularly, all sorts of foods including ham. He then had a foreign body sensation and felt like something was stuck. Of note, he states he has lung carcinoma which is spread to the lymph nodes which has been causing him difficulty swallowing for the last month. He states it took him for 5 hours to drink a bottle of water, even a small amount. Whenever he tries to drink, half an hour later he will cough and it will come back up. While he was able to take his metoprolol this morning for his atrial fibrillation he began having heart palpitations because he thinks that its not in the right place. 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 Narrow complex tachycardia Palpitation Pleural effusion Pleural metastasis Regional lymph node metastasis present SVT (supraventricular tachycardia) Home Medications loratadine 10 mg tablet (Claritin) 10 mg PO DAILY ALLERGIES 05/16/22 [History Last Taken 05/15/22] aspirin 81 mg tablet,delayed release 81 mg PO DAILY #30 tabs 05/18/22 [Rx Last Taken 05/25/22] ipratropium bromide 17 mcg/actuation HFA aerosol inhaler (Atrovent HFA) 2 puff inhalation TID #12.9 grams 05/18/22 [Rx Last Taken Unknown] ipratropium 0.5 mg-albuterol 3 mg (2.5 mg base)/3 mL nebulization soln 3 ml inhalation Q4H PRN PRN SOB &/OR WHEEZING #180 mL 05/22/22 [Rx Last Taken Unk nown] metoprolol tartrate 100 mg tablet 100 mg PO BID #60 tabs 05/30/22 [Rx Last Taken Unknown] Allergy/AdvReac Type Severity Reaction Status Date / Time Opioids - Morphine Analogues AdvReac Nausea Verified 07/05/22 12:20 [narcotics] Family History Mother Esophageal cancer Father Bladder cancer Brother Heart disease, Onset Age: 82 maker Surgical History History of tonsillectomy and adenoidectomy Social History household members: other details: daughter current occupational status: retired and other details: worked in the [employer] for [employer], years ago exposed to asbestos Smoking Status: Current every day smoker tobacco type: cigarettes Tobacco: How many years used: 50 alcohol intake: never substance use type: does not use ROS ROS ED ROS Narrative Constitutional: No fever, no chills. HEENT: No sore throat. No neck pain. No loss of vision. No rhinorrhea. Difficulty swallowing x1 month. Foreign body sensation esophagus for 4 days. Cardiovascular: No chest pain. No palpitations. No pedal edema. Respiratory: No cough, no shortness of breath. Abdominal: No abdominal pain. No nausea. No vomiting. Coughs and will bring liquids up. Has not tried to eat any food recently. Genitourinary: No dysuria. No hematuria. Musculoskeletal: No myalgias. No arthralgias. Neurologic: No headaches. No dizziness. No lightheadedness. Skin: No rash. No change in color. Psychiatric: No depression. No anxiety. EXAM Physical Exam Narrative Exam Narrative: Afebrile. Vital signs noted. HEENT: Normocephalic. Atraumatic. PERRL, EOMI. Neck soft and supple. No point tenderness or step off. Airway patent. No drooling or trismus. Cardiovascular: Irregularly irregular tachycardia, no murmurs, rubs, or gallops appreciated. Respiratory: No tachypnea. Lungs clear to auscultation bilaterally. Gastrointestinal: Abdomen soft, nontender, with normoactive bowel sounds. No rebound or guarding. Neurological: Awake. Alert. Nonfocal, nonlateralizing. Skin: No rash. Normal color. No pallor. Musculoskeletal: No pedal edema. Full range of motion extremities. Const Vital Signs: 07/05/22 12:19 07/05/22 12:31 07/05/22 13:47 Temperature 97.8 F Temperature Source Temporal Pulse Rate 143 H 65 Respiratory Rate 16 20 H Respiratory Effort Normal Non-Labored Respiratory Pattern Normal Blood Pressure 98/60 98/70 Blood Pressure Mean 72 79 Pulse Ox 98 93 Oxygen Delivery Method Room Air Room Air MDM MDM MDM Narrative Medical decision making narrative: Here in the emergency department, patient was able to pass a bedside swallow of Coca-[employer]a. He was able to take in a decent amount. Given that he still has heart palpitations EKG was obtained along with basic blood work. CBC is grossly normal with a normal white count of 10, hemoglobin normal at 14.3, normal platelet count 360. Electrolyte panel shows sodium slightly low 135 with a BUN of 35 and a creatinine of 1.33. He was bolused normal saline 1 L intravenously. Glucose appropriately elevated at 147 with a normal anion gap of 10. EKG interpreted by myself shows atrial fibrillation with rapid ventricular response at 136 bpm. He was ordered Lopressor intravenously, however, after IV fluids his heart rate is in the 90s on the monitor. EKG was repeated which was also interpreted by myself, which shows atrial fibrillation at [address] changes. No STEMI. At this point in time, he has been able to tolerate a can of Coca-Cola. He is no longer having swallowing difficulties. He was told to start a clear liquid diet and advance to soft foods. As he has had dysphagia previously at least for a month, I recommended that he follow-up with gastroenterology. I feel he can be discharged safely home with follow-up. Return instructions to the emergency department were reviewed. Disposition is discharged home in stable condition. Lab Data Attestation: I reviewed the patient's lab results. Labs: Laboratory Results - last 24 hr 07/05/22 07/05/22 13:38 13:38 WBC 10.0 RBC 4.87 Hgb 14.3 Hct 44.8 MCV 92.0 MCH 29.4 MCHC 31.9 L RDW Std Deviation 44.4 H RDW Coeff of Chiquis 13.2 Plt Count 360 MPV 9.1 Immature Gran % (Auto) 0.500 Neut % (Auto) 83.7 H Lymph % (Auto) 10.1 L [place] % (Auto) 4.5 Eos % (Auto) 0.8 Baso % (Auto) 0.4 Absolute Neuts (auto) 8.4 H Absolute Lymphs (auto) 1.01 Nucleated RBC % 0 Sodium 135 L Potassium 4.5 Chloride 102 Carbon Dioxide 23.0 Anion Gap 10 BUN 35 H Creatinine 1.33 H Estim Creat Clear Calc 47.30 Est GFR (MDRD) Af Amer 69 Est GFR (MDRD) Non-Af 57 L BUN/Creatinine Ratio 26.3 H Glucose 147 H Calcium 9.1 Discharge Plan Triage Chief Complaint: Foreign Body ED Provider: Nagi Garcia Dx/Rx/DC Orders Clinical Impression: Paroxysmal atrial fibrillation, Sensation of foreign body in esophagus, Swallowing difficulty Instructions: ED AFIB, ED Soft Diet, ED Symptoms With Uncertain Cause, ED Dysphagia (Adult) Prescriptions: No Action ipratropium-albuterol 0.5 mg-3 mg(2.5 mg base)/3 mL solution for nebulization 3 ml inhalation Q4H PRN PRN (Reason: SOB &/OR WHEEZING) Qty: 180 6RF loratadine [Claritin] 10 mg Tablet 10 mg PO DAILY Atrovent HFA 17 mcg/actuation HFA aerosol inhaler 2 puff inhalation TID Qty: 12.9 0RF aspirin 81 mg tablet,delayed release (DR/EC) 81 mg PO DAILY Qty: 30 2RF metoprolol tartrate 100 mg tablet 100 mg PO BID Qty: 60 11RF Primary Care Provider: Tess Alberts Referrals: Tess Alberts MD [Primary Care Provider] - FriendJasper DO [Med Staff - Active Staff] - As soon as possible Disposition Disposition: Home, Self Care
--- NOTE | 2022-07-05 13:18 | EKG12_ITS ---
Test Reason : FORIGN BODY Blood Pressure : / mmHG Vent. Rate : 136 BPM Atrial Rate : 133 BPM P-R Int : 000 ms QRS Dur : 090 ms QT Int : 308 ms P-R-T Axes : 000 063 000 degrees QTc Int : 463 ms Supraventricular tachycardia Otherwise normal ECG Confirmed by ZACHARY ALDRIDGE, ALICIA ([id number]), web editor BARBY MC ([id number]) on 07/06/2022 2:07:56 PM Referred By: ALANIS Confirmed By:YUE SHARMA MD
[2022-07-05] MEDS: 0.9% Normal Saline 1,000 ML 999 ML IV (13:39)
[2022-07-05 13:47] VITALS: BP 98/70; PULSE 65; RESP 20; O2SAT 93
[2022-07-05 13:56] LABS: Absolute Lymphocyte Count 1.01 X10^3/uL (0.83-4.51); Absolute Neutrophil Count 8.4 X10^3/uL (2.0-7.7); Basophil# 0.04 X10^3/uL; Basophil% 0.4 % (0-1); Eosinophil# 0.08 X10^3/uL; Eosinophils% 0.8 % (0-5); Hematocrit 44.8 % (40-54); Hemoglobin 14.3 g/dL (13.0-16.5); Lymphocyte # 1.01 X10^3/ul (0.83-4.51); Lymphocyte % 10.1 % (19-41); Mean Corp Hgb Conc 31.9 g/dL (32-36); Mean Corpuscular Hgb 29.4 pg (27.0-32.0); Mean Platelet Vol. 9.1 fl (6.2-12.0); Monocyte# 0.45 X10^3/uL; Monocyte% 4.5 % (0-10); NRBC Flagged by Analyzer 0 % (0-5); Neutrophil % 83.7 % (47-70); Platelet Count 360 K/mm3 (150-450); RBC Distribution Width CV 13.2 % (11.6-14.6); RBC Distribution Width SD 44.4 fl (35.1-43.9); Red Blood Count 4.87 M/mm3 (4.6-6.2)
[2022-07-05 14:08] LABS: Anion Gap 10 (5-15); BUN 35 mg/dL (7-18); BUN/Creat Ratio 26.3 RATIO (10-20); Calcium,Total 9.1 mg/dL (8.5-10.1); Chloride 102 mmol/L (98-107); Creatinine, Serum 1.33 mg/dL (0.70-1.30); EST Glomerular Filtration Rate 57 mL/min (>60); Est Glom Filt Rate - Afr Amer 69 mL/min (>60); Glucose 147 mg/dL (74-106); Potassium 4.5 mmol/L (3.5-5.1); Sodium Level 135 mmol/L (136-145)
[2022-07-05 15:11] VITALS: BP 111/70; PULSE 82; RESP 16; O2SAT 96
== END 2022-07-05 15:12 | disposition home or self-care (01) ==
PROVIDERS: Emergency Provider Emergency Medicine; PCP Internal Medicine; Visit Provider Emergency Medicine
DX: I48.0 Paroxysmal atrial fibrillation (principal); F17.210 Nicotine dependence, cigarettes, uncomplicated; R00.2 Palpitations; R13.10 Dysphagia, unspecified; R09.89 Other specified symptoms and signs involving the circulatory and respiratory systems
CPT/HCPCS: 80048; 85025; 93005; 96361; 96374; 99283; J7030; A4216

== ENCOUNTER 2022-07-20 10:43 | Day surgery (SDC) | payer MEDICARE, SELFPAY ==
[2022-07-20] VITALS (8 sets, daily range): BP systolic 95–118; BP diastolic 59–76; PULSE 54–88; RESP 16–18; TEMP 36.1–36.4; O2SAT 93–100; BMI 23.1
[2022-07-20] MEDS: Lactated Ringers 1,000 ML 15 ML IV (11:05)
--- NOTE | 2022-07-20 11:13 | PCM.HP.BLA ---
History and Physical Date of Admission: 07/20/22 Intake Vital Signs ? 07/13/2214:55 Weight: 158 lb 4 oz BP 101/69 Blood Pressure Location Rt brachial Position Sitting Respiration 17 Pulse 64 Pulse Source Monitor Temp 97 F L Temp Source Temporal Pulse Oximetry (%) 94 Oxygen Delivery Method room air Intake Visit Reasons:?PORT PLACEMENT Chief Complaint: port placement Is patient in pain?: No Allergies Opioids - Morphine Analogues [narcotics] Adverse Reaction (Verified 07/13/22 14:58) Nausea Medications loratadine 10 mg tablet (Claritin) 10 mg PO DAILY ALLERGIES 05/16/22 [History Confirmed 07/13/22] aspirin 81 mg tablet,delayed release 81 mg PO DAILY #30 tabs 05/18/22 [Rx Confirmed 07/13/22] ipratropium bromide 17 mcg/actuation HFA aerosol inhaler (Atrovent HFA) 2 puff inhalation TID #12.9 grams 05/18/22 [Rx Confirmed 07/13/22] metoprolol tartrate 100 mg tablet 100 mg PO BID #60 tabs 05/30/22 [Rx Confirmed 07/13/22] ipratropium 0.5 mg-albuterol 3 mg (2.5 mg base)/3 mL nebulization soln 3 ml inhalation Q4H PRN PRN SOB &/OR WHEEZING #180 mL 07/06/22 [Rx Confirmed 07/13/22] PFSH Medical History? 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 History of tonsillectomy and adenoidectomy Family History? Mother Esophageal cancerFather Bladder cancerBrother?? Heart disease,? Onset Age: 82 ?? ? maker Social History? household members:? other details: daughter current occupational status:? retired and other details: worked in the [employer] for [employer], years ago exposed to asbestos Smoking Status:? Current every day smoker tobacco type: cigarettes Tobacco: How many years used:? 50 alcohol intake:? never substance use type:? does not use HPI HPI HPI: Patient is a 71-year-old male here with lung cancer for a port.? Patient will begin chemotherapy after port is placed. ROS General General: Yes weight change and fatigue; No appetite, colon cancer, breast cancer or weakness HEENT HEENT: Yes swollen glands; No difficulty swallowing, eye injury, eye surgery or hoarseness Endo Endocrine: No thyroid disease, diabetes mellitus, thyroid cancer, Hair loss, heat intolerance or cold intolerance Skin Skin: No rash or changing moles Musc Musculoskeletal: Yes arthritis; No back problems, rheumatoid arthritis, gout or joint pain Cardio Cardiovascular: Yes atrial fibrillation; No murmur, pacemaker, heart disease, high blood pressure, heart attack, heart stent, palpitations, shortness of breat with exertion or chest pain Psych Psychiatric: No depression, anxiety or hearing voices Resp Respiratory: Yes shortness of breath, No sleep apnea, Yes cough, Yes COPD, No asthma, Yes emphysema and No wheezing Gastro Gastrointestinal: No abdominal pain, No nausea or vomiting, No diarrhea, No constipation, No blood in stool, No acid reflux, No hemorrhoids, No ulcers, No gallbladder problem and No black,tarry stools Chance Hematologic: No blood thinners, No blood disorders, No bleeding, No anemia and No blood clots Neuro Neurologic: No system reviewed and no additional complaints, except as documented, No as per HPI, No abnormal gait, No abnormal hearing, No abnormal movements, No abnormal speech, No behavioral changes, No burning sensations, No confusion, No convulsions, No disequilibrium, No dizziness, No localized weakness, No frequent falls, No headache(s), No lack of coordination, No loss of vision, No memory loss, No numbness, No other visual disturbances, No radicular pain, No restless legs, No sensory deficit, No syncope, No tingling, No tremor(s), No weakness and No other Exam Const General: cooperative Orientation: alert and oriented x3 HENMT Head: normal to inspection Neck Neck: normal visual inspection and full ROM Chest Chest palpation & inspection: normal inspection of the chest Resp Effort & Inspection: normal respiratory effort Auscultation: clear to auscultation bilaterally Cardio Rate: regular rate Rhythm: regular rhythm GI Inspection: non-distended Palpation: soft and nontender Skin General: no rashes or lesions noted Neuro General: patient alert and patient oriented x3 Extrem General: full ROM Psych Appearance: grossly normal Mental Status: mental status grossly normal Assessment and Plan Assessment and Plan (1) Primary lung adenocarcinoma: ?Status:?Acute (2) Encounter for insertion of venous access port: ?Status:?Acute Plan Patient has lung cancer and requires port placement for chemotherapy.? I discussed right chest port placement the patient in detail.? I discussed the risks including but not limited to bleeding, infection, pneumothorax or line infection.? Patient understands the risks and is willing to proceed.? I plan on placing the port next so I will leave it accessed and he can receive his first treatment on Sunday. Blas Suazo MD Pager: [facility] [address] [place] [address], [address] [place] [address] Office: I have examined the patient and the H&P has been reviewed. There are no clinical changes since date of exam.
[2022-07-20] MEDS: Cefazolin 2 GM in 0.9% Normal Saline 100 ML IV (12:34)
[2022-07-20] MEDS: Bupiv/Epi 0.5% Mpf 30 ML Vial (12:46)
--- NOTE | 2022-07-20 13:15 | PCM.OPRPT ---
Report of Operation Date of Procedure: 07/20/22 Pre-Operative Diagnosis: Need for vascular access for chemotherapy Post-Operative Diagnosis: Same Surgery/Procedure Performed:: Ultrasound and fluoroscopy guided chest port placement utilizing right IJ Description of Procedure: After obtaining informed consent patient was brought back to the operating room MAC anesthesia was induced and the right chest and neck were prepped in normal sterile fashion. Ultrasound was used to evaluate both IJs and the right IJ was selected. Next, using a needle, the right IJ was accessed and a guidewire was passed on into the superior vena cava under fluoroscopy guidance. A small incision was made over the puncture site and the dilator introducer was placed over the guidewire. Next this was capped and the pocket was made for the port. 1% lidocaine with epinephrine was injected in the proposed port site. An incision was made with scalpel. Electrocautery was used to make a pocket under the skin and subcutaneous tissue. Hemostasis was obtained. Next, the catheter was tunneled up to the neck incision site and placed through the introducer. The peel-away introducer was removed and the position of the catheter was confirmed on fluoroscopy. Next, the catheter was trimmed and attached to the port with the locking device. Interrupted 2-0 Vicryl sutures were used to anchor the port to the chest wall and then the port was placed inside the pocket. The pocket was then flushed with saline and the port irrigated with saline. There was good blood return and the port flushed easily. Next, heparin was injected into the port. The skin was closed with subcutaneous interrupted 3-0 Vicryl sutures. A single 3-0 Vicryl sutures placed under the skin at the neck incision site. Steri-Strips were placed as well as op sites. Patient tolerated procedure well, was taken to PACU in stable condition. Chest x-ray will be obtained. Grafts/Implants Used: 8 [place] [employer] Admit VTE Documentation VTE Mechan Device Prophylaxis: SCD's
--- NOTE | 2022-07-20 13:18 | DCINST_ITS ---
Discharge Instructions Procedure Port-A-Cath Diet Discharge Diet: Light diet - advance as tolerated (Pain medication may cause nausea. You should typically eat light foods as you take your pain medication.) Activity Discharge Activity: Return to Normal Activity and May Shower (with your bandage in place in 1-2 days after surgery. DO NOT SHOWER WHEN YOUR PORT IS ACCESSED.) Dressing / Incision Call your doctor if your incision/area has: Continuous Slow Oozing, Sudden Increased Bleeding, Increased Pain/ Swelling, Increased Redness and Foul Smelling Discharge Call your doctor if you observe: Fever of 101 or Higher Remove Dressing in: 2 days Cleanse incision/area with: Soap & Water Follow Up Care Please Follow Up With: Blas Suazo MD When: as needed [phone] Test Results: Test results from this visit will be discussed in further detail at your follow- up appointment, if applicable. Discharge Plan Admission Attending Provider: Blas Suazo Primary Care Provider: Tess Alberts Instructions Additional Instructions / Restrictions: Alternating ibuprofen and Tylenol for pain. Discharge Orders/Prescriptions Prescriptions: No Action ipratropium-albuterol 0.5 mg-3 mg(2.5 mg base)/3 mL solution for nebulization 3 ml inhalation Q4H PRN PRN (Reason: SOB &/OR WHEEZING) Qty: 180 6RF prochlorperazine maleate 10 mg tablet 10 mg PO Q6H PRN (Reason: nausea and vomiting) Qty: 30 2RF ondansetron 8 mg tablet,disintegrating 8 mg PO Q8H PRN (Reason: nausea and vomiting) Qty: 30 0RF lidocaine-prilocaine 2.5-2.5 % cream 1 applic topical ONCE PRN (Reason: port access) 30 Days Qty: 30 2RF dexamethasone 4 mg tablet 4 mg PO BID Qty: 6 2RF Rx Instructions: Take 4 mg by mouth twice daily ONLY the day before, day of and day after chemotherapy folic acid 1 mg tablet 1 mg PO DAILY Qty: 90 1RF loratadine [Claritin] 10 mg Tablet 10 mg PO DAILY aspirin 81 mg tablet,delayed release (DR/EC) 81 mg PO DAILY Qty: 30 2RF metoprolol tartrate 100 mg tablet 100 mg PO BID Qty: 60 11RF Referrals / Follow Up: Tess Alberts MD [Primary Care Provider] - Disposition Disposition (needs filled in before D/C Order can be placed): Home, Self Care
--- NOTE | 2022-07-20 13:20 | RAD_ITS ---
STUDY: X-RAY CHEST REASON FOR EXAM: Male, 71 years old. Line placement -- in pacu TECHNIQUE: Single AP portable view of the chest. COMPARISON: Comparison is made with prior examination 05/29/2022. FINDINGS: A right-sided Port-A-Cath has been placed. The tip is at the junction of the superior vena cava and right atrium. EKG electrodes are seen. Stable increased interstitial markings with areas of confluence in the right lung. Slight worsening of the pleural parenchymal changes at the left lung base. Possible minimal pneumopericardium versus localized medial left pneumothorax adjacent to the left cardiac border. Normal mediastinum and alicia. Normal visualized pulmonary arteries. Normal visualized aortic arch and descending thoracic aorta. Normal visualized thoracic spine. Normal visualized ribs, clavicles, and shoulders. There is no demonstrated abnormality of the visualized soft tissue structures of the upper abdomen. RAD/CXR for Line Placement IMPRESSION: The tip of the right Port-A-Cath ends at the junction of the superior vena cava and right atrium. Linear density along the left cardiac border suggestive of either a pneumopericardium versus loculated medial left pneumothorax. Electronically Signed: Nam Christopher MD at 13:50 EST ,
--- NOTE | 2022-07-20 14:14 | CT_ITS ---
STUDY: CT CHEST WITHOUT CONTRAST REASON FOR EXAM: Male, 71 years old. Post port placement abnormal xray RADIATION DOSAGE (If Supplied By Facility): CTDIvol = ( 6.83 ) mGy, DLP = ( 227.47 ) mGycm TECHNIQUE: Transaxial imaging was performed without the administration of intravenous contrast material. Multiplanar coronal and sagittal images were reformatted. Individualized dose optimization techniques were used for this CT. COMPARISON: Comparison is made with prior study 05/16/2022. FINDINGS: CHEST A right-sided Port-A-Cath are seen within the superior vena cava. Stable appearance of the mass lesion in the right lower lobe with evidence of scarring in both lungs with honeycombing worse in the right lung. There is no demonstrated pleural abnormality. There are calcifications of the coronary arteries. No evidence of loculated medial left pneumothorax or pneumopericardium. There is thickening of the left major fissure which represents the finding on the chest radiograph. Again, is evidence of diffuse bilateral hilar and mediastinal lymphadenopathy. Normal hilar regions. Normal unenhanced pulmonary arteries. There is atherosclerotic calcification of the aortic arch with tortuosity and elongation of the aortic arch and descending thoracic aorta. There are multi-level degenerative changes of the thoracic spine. Retrocrural lymphadenopathy. CT/Chest without Contrast IMPRESSION: Stable examination. Electronically Signed: Nam Christopher MD at 15:00 EST ,
== END 2022-07-20 15:24 | disposition home or self-care (01) ==
LOC: SDC 10:45 → AC 10:47
PROVIDERS: PCP Internal Medicine; Referring Provider Surgery; Visit Provider Surgery
PROC: (CPT 36561; principal; 2022-07-20 12:15)
DX: Z45.2 Encounter for adjustment and management of vascular access device (principal); C78.2 Secondary malignant neoplasm of pleura; C77.2 Secondary and unspecified malignant neoplasm of intra-abdominal lymph nodes; C77.0 Secondary and unspecified malignant neoplasm of lymph nodes of head, face and neck; C34.32 Malignant neoplasm of lower lobe, left bronchus or lung; C77.9 Secondary and unspecified malignant neoplasm of lymph node, unspecified; I48.91 Unspecified atrial fibrillation; F17.210 Nicotine dependence, cigarettes, uncomplicated; F17.211 Nicotine dependence, cigarettes, in remission
CPT/HCPCS: 36561; 00532; 71045; 71250; 77001; J7120; C1788; J2405